=== PATIENT | female | born 1940 | race Caucasian/White ===

== ENCOUNTER 2018-01-19 02:22 | Outpatient (CLI) | payer MEDICARE, SELFPAY ==
[2018-01-19 08:17] LABS: ALT 22 U/L (12-78); AST 14 U/L (15-37); Albumin 3.7 g/dL (3.4-5.0); Alkaline Phosphatase 81 U/L (46-116); Anion Gap 9.2 mmol/L (3-11); BUN 15 mg/dL (7-18); Bilirubin, Total 0.6 mg/dL (0.2-1.0); CO2 28.8 mmol/L (21.0-32.0); CREATININE 1.01 mg/dL (0.55-1.02); Calcium 8.9 mg/dL (8.5-10.1); Chloride 103 mmol/L (98-107); Estimated GFR 53.15 (mL/min/1.73m2); Glucose 110 mg/dL (70-100); Sodium 141 mmol/L (136-145); Total Protein 7.3 g/dL (6.4-8.2)
== END 2018-01-19 02:23 ==
DX: I10 Essential (primary) hypertension (principal); J30.2 Other seasonal allergic rhinitis; R63.8 Other symptoms and signs concerning food and fluid intake
CPT/HCPCS: 36415; 80053

== ENCOUNTER 2018-12-28 02:19 | Outpatient (CLI) | payer MEDICARE, SELFPAY ==
[2018-12-28 10:44] LABS: ALT 27 U/L (12-78); AST 14 U/L (15-37); Albumin 3.8 g/dL (3.4-5.0); Alkaline Phosphatase 89 U/L (46-116); Anion Gap 6.6 mmol/L (3-11); BUN 16 mg/dL (7-18); Bilirubin, Total 0.8 mg/dL (0.2-1.0); CO2 28.4 mmol/L (21.0-32.0); CREATININE 0.92 mg/dL (0.55-1.02); Calcium 8.8 mg/dL (8.5-10.1); Chloride 105 mmol/L (98-107); Estimated GFR 59.19 (mL/min/1.73m2); Glucose 115 mg/dL (70-100); Potassium 4.4 mmol/L (3.5-5.1); Sodium 140 mmol/L (136-145); Total Protein 7.1 g/dL (6.4-8.2)
[2018-12-28 11:08] LABS: Hemoglobin A1C 5.8 % (4.5-6.2)
== END 2018-12-28 02:39 ==
DX: C50.919 Malignant neoplasm of unspecified site of unspecified female breast (principal); I10 Essential (primary) hypertension; L57.0 Actinic keratosis; R73.09 Other abnormal glucose
CPT/HCPCS: 36415; 80053; 83036

== ENCOUNTER 2020-02-07 04:29 | Outpatient (CLI) | payer MEDICARE, SELFPAY ==
[2020-02-07 13:11] LABS: Hemoglobin A1C 5.9 % (<5.7)
[2020-02-07 13:18] LABS: ALT 26 U/L (14-59); AST 14 U/L (15-37); Albumin 3.8 g/dL (3.4-5.0); Alkaline Phosphatase 88 U/L (46-116); Anion Gap 8.7 mmol/L (3-11); BUN 16 mg/dL (7-18); Bilirubin, Total 0.6 mg/dL (0.2-1.0); CO2 29.3 mmol/L (21.0-32.0); CREATININE 0.94 mg/dL (0.55-1.02); Calcium 9.4 mg/dL (8.5-10.1); Chloride 101 mmol/L (98-107); Estimated GFR 57.44 (mL/min/1.73m2); Glucose 117 mg/dL (74-106); Potassium 3.9 mmol/L (3.5-5.1); Sodium 139 mmol/L (136-145); Total Protein 7.3 g/dL (6.4-8.2)
== END 2020-02-07 04:49 ==
DX: R73.01 Impaired fasting glucose (principal); I10 Essential (primary) hypertension; R12 Heartburn; G25.2 Other specified forms of tremor
CPT/HCPCS: 36415; 80053; 83036

== ENCOUNTER 2020-06-10 08:20 | Emergency (ER) | payer OTHER, SELFPAY ==
[2020-06-10] VITALS (67 sets, daily range): BP systolic 138–194; BP diastolic 67–106; PULSE 47–86; RESP 12–24; TEMP 36.1; O2SAT 95–100
--- NOTE | 2020-06-10 08:00 | RT.EKG_ITS ---
APPROVED REPORT Exam: Resting ECG Patient Location: E HR:74 bpm ECG Measurements Heart Rate 74 AXIS ME 173 P 3 QRSd 103 QRS -33 QT 413 T 78 QTc 459 Conclusion Sinus rhythm...normal P axis, V-rate 60- 99 Left ventricular hypertrophy...multiple LVH criteria Repol abnrm suggests ischemia, diffuse leads...ST-T neg, ant/lat/inf ST elevation, consider inferior injury...ST >0.08mV, II III aVF. 1-2mm ST elevation in III, aVF. Reciprocal changes with 1-2mm ST depression in I, aVL, V2-5.
--- NOTE | 2020-06-10 08:15 | ED.GENADUL_ITS ---
Discharge Plan Disposition Patient Disposition: [facility] Condition: Serious Discharge Details Clinical Impression: STEMI (ST elevation myocardial infarction) Primary Care Provider: Renée Esposito ED Provider: Dorcas Young Home Meds and New Rx's Prescriptions: No Action Any 128 2 % drops 1 drp OP DAILY RF: 0 dorzolamide-timolol (PF) 2-0.5 % drops 1 drp OP BID RF: 0 hydrochlorothiazide 25 mg tablet 25 mg PO DAILY Qty: 90 RF: 4 metoprolol tartrate 50 mg tablet 50 mg PO BID Qty: 180 RF: 4 potassium chloride [Klor-Con M20] 20 mEq tablet,ER particles/crystals 20 meq PO DAILY Qty: 90 RF: 4 latanoprost [Xalatan] 2.5 ML drops 1 drp OU HS RF: 0 Tears Naturale II 15 ML drops 15 ml Ophthalmic PRN RF: 0 Discharge Data Discharge Date/Time-TO BE ENTERED AT DEPARTURE: 06/10/20 10:06 Medical Decision Making 0815 -- 80-year-old female with a history of breast cancer with left breast lumpectomy and lymph node resection, hypertension, hyperlipidemia and migraine presents for chest pressure and possible inferior STEMI per EMS. EKG per EMS noted elevation in the inferior leads with reciprocal changes. She was given 4 baby aspirin in route and is currently pain-free. Blood pressure on arrival 194/106. Recheck blood pressure 158/95. EKG on arrival notes a rate of 74, Q waves in 3 and aVF, sinus with [address] elevation in 3 and aVF with reciprocal changes in 1, aVL, V2-5. [facility] paged immediately for cardiology consult. Case discussed with [facility] cardiology who reviewed EKGs and are not calling a STEMI alert or recommend immediate [employer] at accepted patient for transfer, accepting physician Dr. Park, recommend 600 mg Plavix and heparin bolus and drip. Patient to go to the [facility]. 0845 --patient noted to have sinus bradycardia in the 40s on the monitor and complaining of nausea. She denies any chest pain or pressure. Repeat EKG notes a rate of 83, sinus with [address] elevation in 3, [address] elevation in aVF and no acute change in reciprocal findings. Her heart rate improved to the 60s and she was given a dose of Zofran. Labs reviewed and note a troponin of 2.87. Portable chest x-ray no evidence of widened mediastinum. Calcifications left side of chest, she has history of left breast lumpectomy. 0900 --BP 138/67. Patient states nausea improved and she still is chest pain- free. Remainder of labs reviewed and notes a potassium of 3.2 and magnesium of 1.6, will replete. CT chest obtained due to patient's history of breast cancer and it is negative for PE, does note calcifications which are likely status post lobectomy. Medical Records Medical records reviewed: Yes I reviewed the patient's medical records. Imaging Data Radiologic Study: Radiologist's impression: XR PORTABLE CHEST AP CLINICAL HISTORY: chest pressure, r/o acute disease TECHNIQUE: 2D digital imaging was performed. COMPARISON: No exams were available for comparison FINDINGS: MEDIASTINUM: Normal. HEART: Normal. PULMONARY VASCULATURE: Normal. LUNGS: Irregular densities are projected over the lateral aspect of the left hemithorax. These may be represent internal densities such as pleural calcifications, pulmonary mass or infiltrate. PLEURAL SPACE: No pleural effusion or pneumothorax. BONE:Within normal limits for the patient's age. OTHER FINDINGS:Overlying monitoring equipment and wires are noted. IMPRESSION: Densities projected over the lateral aspect of the left hemithorax. Differential considerations include pleural calcifications, pulmonary mass or infiltrate. Skin surface material cannot be excluded. A CT scan of the chest should be considered for further evaluation. CT CHEST PE CTA CLINICAL HISTORY: chest pressure, sob, possible stemi. TECHNIQUE: Imaging Protocol: Axial CT angiography was performed with multi- slice acquisition and multi-planar and/or 3D reconstructions. CONTRAST MATERIAL: Intravenous: Omnipaque 350 Contrast volume:100 mL COMPARISON: CR XR PORTABLE CHEST AP from 06/10/2020 FINDINGS: Tracheobronchial tree: Patent where visualized. Pulmonary parenchyma: Dependent atelectasis in the lung bases. A small area of consolidation in the medial aspect of the right middle lobe which may represent atelectasis or scarring. Scarring in the medial aspect of the left lingula with traction bronchiectasis. Pulmonary Arteries: No evidence of filling defect to suggest pulmonary emboli. Mediastinum and Veronique: No dominant adenopathy or fluid collection. Small hiatal hernia. Visualized thyroid gland: Unremarkable. Pleura: No effusion or pneumothorax. Heart: The heart is not dilated. Moderate coronary artery calcification. No pericardial effusion. Aorta: Thoracic aorta non-dilated. Atherosclerosis. No evidence of dissection. Upper abdomen: 5.2 cm simple cyst in the superior pole of the left kidney. Soft tissues: There are calcifications seen in the soft tissues of the left breast which account for the density seen on the chest x-ray. Bones: Degenerative changes. Old T9 and L2 compression fracture deformities. IMPRESSION: 1. No evidence of pulmonary embolism, thoracic aortic dissection or aneurysm. 2. Calcifications seen on the chest x-ray are in the soft tissues of the left breast. The patient is status post left lumpectomy. 3. Findings were discussed with the emergency department on the date of the examination. Lab Data Lab results reviewed: Yes I reviewed the patient's lab results. Labs: Laboratory Tests Range/Units 06/10/20 06/10/20 06/10/20 08:36 08:36 08:36 WBC (4.4-10.8) 10^3/uL 7.08 RBC (3.93-5.22) 10^6/uL 4.99 Hgb (11.2-15.7) g/dL 15.8 H Hct (36.0-46.0) % 44.1 MCV (80-95) fL 88.4 MCH (27.0-33.0) pg 31.7 MCHC (32.0-36.0) % 35.8 RDW (11.7-14.6) % 12.5 Plt Count (130-400) 10^3/uL 217 MPV (8.0-11.0) fL 10.3 Immature Gran % 0.3 Neutrophils % 72.9 Lymphocytes % 16.5 Monocytes % 9.6 Eosinophils % 0.3 Basophils % 0.4 Nucleated RBC % % 0 Absolute Neutrophils (1.2-6.7) 10^3/uL 5.16 Absolute Lymphocytes (1.2-3.4) 10^3/uL 1.17 L Absolute Monocytes (0.1-0.8) 10^3/uL 0.68 Absolute Eosinophils (0.0-0.7) 10^3/uL 0.02 Absolute Basophils (0.0-0.2) 10^3/uL 0.03 PT (9.3-11.0) sec 10.2 INR (0.9-1.1) 1.0 APTT (21.0-27.5) sec 24.1 Sodium (136-145) mmol/L 135 L Potassium (3.5-5.1) mmol/L 3.2 L Chloride (98-107) mmol/L 99 Carbon Dioxide (21.0-32.0) mmol/L 29.5 Anion Gap (3-11) mmol/L 6.5 BUN (7-18) mg/dL 16 Creatinine (0.55-1.02) mg/dL 1.08 H Estimated GFR/1.73 m2 (mL/min/1.73m2) 48.94 Glucose (74-106) mg/dL 153 H Calcium (8.5-10.1) mg/dL 10.1 Magnesium (1.8-2.4) mg/dL 1.6 L Total Bilirubin (0.2-1.0) mg/dL 1.0 AST (15-37) U/L 40 H ALT (14-59) U/L 29 Alkaline Phosphatase (46-116) U/L 94 Troponin I (<0.06) ng/mL 2.87 H* Total Protein (6.4-8.2) g/dL 8.0 Albumin (3.4-5.0) g/dL 4.0 Lipase (73-393) U/L Range/Units 06/10/20 08:36 WBC (4.4-10.8) 10^3/uL RBC (3.93-5.22) 10^6/uL Hgb (11.2-15.7) g/dL Hct (36.0-46.0) % MCV (80-95) fL MCH (27.0-33.0) pg MCHC (32.0-36.0) % RDW (11.7-14.6) % Plt Count (130-400) 10^3/uL MPV (8.0-11.0) fL Immature Gran % Neutrophils % Lymphocytes % Monocytes % Eosinophils % Basophils % Nucleated RBC % % Absolute Neutrophils (1.2-6.7) 10^3/uL Absolute Lymphocytes (1.2-3.4) 10^3/uL Absolute Monocytes (0.1-0.8) 10^3/uL Absolute Eosinophils (0.0-0.7) 10^3/uL Absolute Basophils (0.0-0.2) 10^3/uL PT (9.3-11.0) sec INR (0.9-1.1) APTT (21.0-27.5) sec Sodium (136-145) mmol/L Potassium (3.5-5.1) mmol/L Chloride (98-107) mmol/L Carbon Dioxide (21.0-32.0) mmol/L Anion Gap (3-11) mmol/L BUN (7-18) mg/dL Creatinine (0.55-1.02) mg/dL Estimated GFR/1.73 m2 (mL/min/1.73m2) Glucose (74-106) mg/dL Calcium (8.5-10.1) mg/dL Magnesium (1.8-2.4) mg/dL Total Bilirubin (0.2-1.0) mg/dL AST (15-37) U/L ALT (14-59) U/L Alkaline Phosphatase (46-116) U/L Troponin I (<0.06) ng/mL Total Protein (6.4-8.2) g/dL Albumin (3.4-5.0) g/dL Lipase (73-393) U/L 132 ECG Data Attestation: I personally reviewed and interpreted this ECG (s) as follows: Interpretation: #1 --Rate of 74, sinus, Q waves noted in 3 and aVF. [address] elevation in 3 and aVF, [address] depression in 1, aVL, V2 through V5. PA 173. QRS 103. QTc 459. #2 --Rate of 63, sinus, Q waves noted in 3 and aVF. [address] elevation in 3, [address] elevation in aVF, [address] depression in 1, aVL, V2 through the 5. HPI General Mode of arrival: EMS . Date/Time Provider Initiated Documentation: 06/10/20 08:27 . Limitations to Documentation: no limitations . Information obtained by: patient . HPI Narrative: Patient is a 80-year-old female with a history of breast cancer and last lumpectomy and lymph node resection, hypertension, hyperlipidemia, migraine headaches presents for indigestion, chest pressure, shortness of breath and nausea for the past 6 days presents by EMS for possible STEMI. EKG per EMS noted elevation in the inferior leads with reciprocal changes. EMS gave patient 4 baby aspirin in route and since then she has been pain-free. She was not given any nitro. She states she has not taken any of her regular medications or eaten yet this morning. Patient states her symptoms started with indigestion 6 days ago and then led to intermittent chest pressure. She states the chest pressure is anterior and comes and goes with out aggravating factors. She states she took a full dose aspirin twice over the past 2 days with some relief of her chest pressure. He states she called the ambulance this morning because the chest pressure awoke her from sleep and was associated with extreme generalized weakness. She states she does have a history of shortness of breath that she has had chronically since her breast cancer diagnosis and states is no worse than usual. She states she has had some nausea but denies any vomiting. She denies any dizziness or diaphoresis. She denies any fever, cough, recent travel, recent known sick contacts or known exposure to coronavirus. Related Data Home Medications Medication Instructions Recorded Confirmed latanoprost [Xalatan] 1 drp OU HS drp 10/14/12 06/10/20 dextran 70-hypromellose [Tears 15 ml OPHTHALMIC PRN 12/07/12 06/10/20 Naturale-Ii Eye Drops] dorzolamide 2 %-timolol 0.5 % (PF) 1 drp OP BID 01/21/20 06/10/20 eye drops hydrochlorothiazide 25 mg tablet 25 mg PO DAILY #90 tab 01/21/20 06/10/20 metoprolol tartrate 50 mg tablet 50 mg PO BID #180 tab-cap 01/21/20 06/10/20 potassium chloride 20 mEq 20 meq PO DAILY #90 tab-cap 01/21/20 06/10/20 tablet,extended release(part/cryst) sodium chloride 2 % eye drops 1 drp OP DAILY 01/21/20 06/10/20 Previous Rx's Medication Instructions Recorded hydrochlorothiazide 25 mg tablet 25 mg PO DAILY #90 tab 01/21/20 metoprolol tartrate 50 mg tablet 50 mg PO BID #180 tab-cap 01/21/20 potassium chloride 20 mEq 20 meq PO DAILY #90 tab-cap 01/21/20 tablet,extended release(part/cryst) Allergies Allergy/AdvReac Type Severity Reaction Status Date / Time No Known Allergies Allergy Verified 06/10/20 08:30 Review of Systems All systems reviewed & are unremarkable except as noted in HPI and below Constitutional Constitutional: Reports as per HPI, Denies chills, Denies fever(s) and Reports weakness Eyes Eyes: Denies blurry vision ENT Ears, Nose, Mouth, and Throat: Denies dizziness, Denies sore throat and Denies throat swelling Cardiovascular Cardiovascular: Reports chest pain and Reports dyspnea Respiratory Respiratory: Denies cough and Reports dyspnea Gastrointestinal Gastrointestinal: Denies abdominal pain, Denies diarrhea, Reports nausea and Denies vomiting Genitourinary Genitourinary: Denies hematuria and Denies dysuria Musculoskeletal Musculoskeletal: Denies back pain and Denies numbness Integumentary/Breasts Skin/Breast: Denies lesions and Denies rash Neurologic Neurologic: Denies dizziness, Denies localized weakness, Denies numbness and Reports weakness Allergic/Immunologic Allergic/Immunologic: Denies throat swelling [facility] Medical History (Updated 06/10/20 @ 09:02 by Dorcas Young DO) Breast Cancer Essential hypertension Essential tremor Fall Glaucoma Heartburn Tubular Adenoma (~2003) Surgical History Breast, Lumpectomy for malignancy 1990 Colonoscopy - IV Sedation 2003, 2006- [place] 2013 - [facility] Extraction of cataract (~1943) in infancy Family History (Updated 01/21/20 @ 15:35 by Sosa Zayas) Mother , 101 Hyperlipidemia Mental disorder DEMENTIA Stroke Dementia Father , 58 Heart disease Myocardial infarction Brother No problems noted. Brother Multiple sclerosis Maternal Grandmother , 97 No problems noted. Maternal Aunt Cancer of uterine adnexa Maternal Grandfather , 58 Heart disease Maternal Grandfather , 97 Heart disease Paternal Grandmother , 78 Essential hypertension Stroke Son No problems noted. Son No problems noted. Son No problems noted. Daughter No problems noted. Social History (Updated 01/21/20 @ 15:33 by Sosa Zayas) Smoking/Tobacco Use Status: Never Smoking risk assessment performed?: Yes Alcohol Intake: current Alcohol type: wine Drug use: Never Substance use type: does not use Counseling given: No Counseling provided: none Caregiver/Support person: No Household members: children and other Details: Oldest son (55) disabled Housing: house Communication Needs: Corrective Lenses Do you need help understanding health information?: Rarely Pets and animals: Yes Pets and animals: cat(s) Sexually active: Yes Do you think of yourself as: straight/heterosexual Current gender identity: female What is your relationship status?: How often do you talk on the phone with friends or family?: three or more times per week How often do you get together with friends or relatives?: three or more times per week How often do you attend scientologist or advent services?: 1-3 times per year Do you belong to any clubs or organized social groups?: no Panel score (0-1 are the most socially isolated patients): 1 What type of physical activity do you participate in: walking Duration: 30-45 minutes/day Frequency: daily Laura/Caodaism: Sabianism Special laura needs: No Seatbelt use: always Drive intox or ride w/intox trolley coach driver: No Exam Const General: cooperative and no acute distress Orientation: alert, awake and oriented x3 HENMT Head: normal to inspection Ears: hearing grossly normal bilaterally and external ears normal General nose exam: external nose normal Face and sinus: normal facial exam Mouth: oral mucosae normal Throat: posterior oropharynx normal Eyes General: appearance normal, both eyes and all related structures Eyelids: eyelids normal EOM: EOM intact bilaterally Neck Neck: normal visual inspection Lymphatic: no lymphadenopathy noted Chest Chest: normal inspection of the chest and no tenderness Resp Effort & Inspection: normal respiratory effort and able to speak in complete sentences Auscultation: clear to auscultation bilaterally Cardio Rate: regular rate Rhythm: regular rhythm GI Inspection: normal to inspection Palpation: soft, not firm, no guarding, no hepatosplenomegaly, no masses and nontender Auscultation: normal bowel sounds Skin General skin exam: no rashes or lesions noted Neuro General: patient alert and patient awake Cognition: normal cognition Speech: speech normal Gait: normal gait Motor: muscle tone normal throughout Sensory Exam: no sensory deficits noted Extrem General: normal to inspection, full ROM, capillary refill normal and no edema Psych Appearance: grossly normal Mental Status: mental status grossly normal Speech and Movement: speech and movement normal Affect: normal affect Thought Process: normal Critical Care Time Critical Care Time Critical Care Time: Yes Total Critical Care Time: 60 Attestation: I spent 60 minutes of critical care time with this patient. This does not include time spent on separately reported billable procedures.
[2020-06-10] MEDS: Normal Saline 1,000 ML 125 ML IV (08:40)
--- NOTE | 2020-06-10 08:41 | DI.CT_ITS ---
EXAM: CT CHEST PE CTA CLINICAL HISTORY: chest pressure, sob, possible stemi. TECHNIQUE: Imaging Protocol: Axial CT angiography was performed with multi-slice acquisition and mu lti-planar and/or 3D reconstructions. CONTRAST MATERIAL: Intravenous: Omnipaque 350 Contrast volume:100 mL COMPARISON: CR XR PORTABLE CHEST AP from 06/10/2020 FINDINGS: Tracheobronchial tree: Patent where visualized. Pulmonary parenchyma: Dependent atelectasis in the lung bases. A small area of consolidation in the medial aspect of the right middle lobe which may represent atelectasis or scarring. Scarring in the medial aspect of the left lingula with traction bronchiectasis. Pulmonary Arteries: No evidence of filling defect to suggest pulmonary emboli. Mediastinum and Veronique: No dominant adenopathy or fluid collection. Small hiatal hernia. Visualized thyroid gland: Unremarkable. Pleura: No effusion or pneumothorax. Heart: The heart is not dilated. Moderate coronary artery calcification. No pericardial effusion. Aorta: Thoracic aorta non-dilated. Atherosclerosis. No evidence of dissection. Upper abdomen: 5.2 cm simple cyst in the superior pole of the left kidney. Soft tissues: There are calcifications seen in the soft tissues of the left breast which account for the density seen on the chest x-ray. Bones: Degenerative changes. Old T9 and L2 compression fracture deformities. IMPRESSION: 1. No evidence of pulmonary embolism, thoracic aortic dissection or aneurysm. 2. Calcifications seen on the chest x-ray are in the soft tissues of the left breast. The patient is status post left lumpectomy. 3. Findings were discussed with the emergency department on the date of the examination. RADIATION DOSE DELIVERED: 395.85mGy.cm Total DLP DATA REPOSITORY: All CT scans at this facility are submitted to the National Radiology Data Registry (NRDR) Dose Index Registry (DIR) with the [employer] (A[employer]). RADIATION OPTIMIZATION: All CT scans at this facility use at least one of these dose optimization te chniques: automated exposure control; mA and/or kV adjustment per patient size (includes targeted exa ms where dose is matched to clinical indication); or iterative reconstruction.
--- NOTE | 2020-06-10 08:45 | DI.RAD_ITS ---
EXAM: XR PORTABLE CHEST AP CLINICAL HISTORY: chest pressure, r/o acute disease TECHNIQUE: 2D digital imaging was performed. COMPARISON: No exams were available for comparison FINDINGS: MEDIASTINUM: Normal. HEART: Normal. PULMONARY VASCULATURE: Normal. LUNGS: Irregular densities are projected over the lateral aspect of the left hemithorax. These may b e represent internal densities such as pleural calcifications, pulmonary mass or infiltrate. PLEURAL SPACE: No pleural effusion or pneumothorax. BONE:Within normal limits for the patient's age. OTHER FINDINGS:Overlying monitoring equipment and wires are noted. IMPRESSION: Densities projected over the lateral aspect of the left hemithorax. Differential considerations incl ude pleural calcifications, pulmonary mass or infiltrate. Skin surface material cannot be excluded. A CT scan of the chest should be considered for further evaluation. DATA REPOSITORY: RADIATION DOSE DELIVERED:
[2020-06-10] MEDS: Clopidogrel 300 MG TAB 600 MG PO (08:49)
[2020-06-10 08:51] LABS: Abs Immature Grans 0.02 10^3/uL (0.0-0.06); Absolute Basophil Count 0.03 10^3/uL (0.0-0.2); Absolute Eosinophil Count 0.02 10^3/uL (0.0-0.7); Absolute Lymphocyte Count 1.17 10^3/uL (1.2-3.4); Absolute Monocyte Count 0.68 10^3/uL (0.1-0.8); Absolute Neutrophil Count 5.16 10^3/uL (1.2-6.7); Basophils % 0.4; Eosinophils % 0.3; HCT 44.1 % (36.0-46.0); HGB 15.8 g/dL (11.2-15.7); Immature Grans % 0.3; Lymphocytes % 16.5; MCH 31.7 pg (27.0-33.0); MCHC 35.8 % (32.0-36.0); MCV 88.4 fL (80-95); MPV 10.3 fL (8.0-11.0); Monocytes % 9.6; Neutrophils % 72.9; Nucleated RBC 0 %; Platelet Count 217 10^3/uL (130-400); RBC 4.99 10^6/uL (3.93-5.22); RDW 12.5 % (11.7-14.6); RDW-SD 40.3 fL; WBC 7.08 10^3/uL (4.4-10.8)
--- NOTE | 2020-06-10 08:56 | RT.EKG_ITS ---
APPROVED REPORT Exam: Resting ECG Patient Location: E HR:63 bpm ECG Measurements Heart Rate 63 AXIS CO 171 P -4 QRSd 107 QRS -34 QT 424 T -74 QTc 435 Conclusion Sinus rhythm...normal P axis, V-rate 60- 99 Left ventricular hypertrophy...multiple LVH criteria ST elevation secondary to LVH...Multiple VCG criteria Nonspecific T abnormalities, lateral leads...T <-0.10mV, I aVL V5 V6. 2mm ST elevation in III. 1mm ST elevation in aVF. 1-2mm ST depression in I, aVL, V2-5.
[2020-06-10] MEDS: Ondansetron 4 MG/2 ML VIAL (08:59)
[2020-06-10 09:00] LABS: Lipase 132 U/L (73-393)
[2020-06-10 09:03] LABS: PTT Activated 24.1 sec (21.0-27.5); Prothrombin Time 10.2 sec (9.3-11.0)
[2020-06-10 09:05] LABS: ALT 29 U/L (14-59); AST 40 U/L (15-37); Alkaline Phosphatase 94 U/L (46-116); Anion Gap 6.5 mmol/L (3-11); BUN 16 mg/dL (7-18); CO2 29.5 mmol/L (21.0-32.0); CREATININE 1.08 mg/dL (0.55-1.02); Calcium 10.1 mg/dL (8.5-10.1); Chloride 99 mmol/L (98-107); Estimated GFR 48.94 (mL/min/1.73m2); Glucose 153 mg/dL (74-106); Magnesium 1.6 mg/dL (1.8-2.4); Potassium 3.2 mmol/L (3.5-5.1); Sodium 135 mmol/L (136-145)
[2020-06-10 09:07] LABS: Troponin I 2.87 ng/mL (<0.06)
[2020-06-10] MEDS: MAGNESIUM SULFATE 1 GM/100 ML BAG IVPB (09:17)
[2020-06-10] MEDS: Potassium Chloride 20 MEQ TABCR 40 MEQ PO (09:21)
[2020-06-10] MEDS: Omnipaque 350 MG/ML 100 ML BTL IJ (09:40)
[2020-06-10] MEDS: Normal Saline - Diluent 50 ML VIAL IV (09:41)
== END 2020-06-10 10:06 | disposition short-term general hospital (02) ==
PROVIDERS: Emergency Provider Physician Assistant
DX: I21.19 ST elevation (STEMI) myocardial infarction involving other coronary artery of inferior wall (principal); I10 Essential (primary) hypertension
CPT/HCPCS: 36415; 71275; 80053; 83690; 93005; 96361; 96365; 96375; 96376; 99291; 71045; 83735; 84484; 85025; 85610; 85730; 93010; J2405; J3475; J3490

== ENCOUNTER 2020-06-26 03:48 | Outpatient (CLI) | payer OTHER, SELFPAY ==
[2020-06-26 13:00] LABS: Anion Gap 10.3 mmol/L (3-11); BUN 18 mg/dL (7-18); CO2 26.7 mmol/L (21.0-32.0); CREATININE 0.8 mg/dL (0.55-1.02); Calcium 9.1 mg/dL (8.5-10.1); Chloride 104 mmol/L (98-107); Glucose 112 mg/dL (74-106); Potassium 4.2 mmol/L (3.5-5.1); Sodium 141 mmol/L (136-145)
== END 2020-06-26 03:49 | disposition home or self-care (01) ==
LOC: LOS 03:48
DX: I10 Essential (primary) hypertension (principal)
CPT/HCPCS: 36415; 80048

== ENCOUNTER → 2020-07-10 12:51 | Outpatient (BNVA) | payer OTHER, SELFPAY | PROVIDERS: Visit Provider Internal Medicine Cardiovascular Disease | DX: I21.4 Non-ST elevation (NSTEMI) myocardial infarction (principal); Z95.5 Presence of coronary angioplasty implant and graft | CPT/HCPCS: 99204; 99214 ==

== ENCOUNTER 2020-08-20 02:37 | Outpatient (CLI) | payer OTHER, SELFPAY ==
[2020-08-21 14:19] LABS: COVID-19 RT-PCR UVMMC Result Negative (Negative)
== END 2020-08-20 02:38 | disposition home or self-care (01) ==
LOC: LBO 02:37
DX: Z20.822 Contact with and (suspected) exposure to COVID-19 (principal)
CPT/HCPCS: U0003

== ENCOUNTER 2020-09-19 08:00 | Outpatient (RCR) | payer OTHER, SELFPAY | END 2020-09-19 23:59 | disposition home or self-care (01) | LOC: CR 08:00 | PROVIDERS: Visit Provider Family Medicine | DX: I25.2 Old myocardial infarction (principal); Z51.89 Encounter for other specified aftercare; Z95.5 Presence of coronary angioplasty implant and graft; I10 Essential (primary) hypertension | CPT/HCPCS: S9472 ==

== ENCOUNTER 2020-10-17 08:00 | Outpatient (RCR) | payer OTHER, SELFPAY | END 2020-10-20 23:59 | disposition home or self-care (01) | LOC: CR 08:00 | PROVIDERS: Visit Provider Family Medicine | DX: Z51.89 Encounter for other specified aftercare (principal); I25.2 Old myocardial infarction; Z95.5 Presence of coronary angioplasty implant and graft | CPT/HCPCS: S9472 ==

== ENCOUNTER 2020-11-17 08:00 | Outpatient (RCR) | payer OTHER, SELFPAY | END 2020-11-19 23:59 | disposition home or self-care (01) | LOC: CR 08:00 | PROVIDERS: Visit Provider Family Medicine | DX: Z51.89 Encounter for other specified aftercare (principal); I25.2 Old myocardial infarction; Z95.5 Presence of coronary angioplasty implant and graft | CPT/HCPCS: S9472 ==

== ENCOUNTER 2020-12-18 04:10 | Outpatient (CLI) | payer OTHER, SELFPAY ==
[2020-12-18 10:27] LABS: ALT 25 U/L (14-59); AST 15 U/L (15-37); Albumin 3.9 g/dL (3.4-5.0); Alkaline Phosphatase 125 U/L (46-116); Anion Gap 11.4 mmol/L (3-11); BUN 13 mg/dL (7-18); CO2 24.6 mmol/L (21.0-32.0); CREATININE 0.9 mg/dL (0.55-1.02); Calcium 9.2 mg/dL (8.5-10.1); Calculated LDL 60 mg/dL (<100); Chloride 105 mmol/L (98-107); Cholesterol 127 mg/dL (<200); Glucose 110 mg/dL (74-106); HDL Cholesterol 44 mg/dL (40-60); Potassium 4.4 mmol/L (3.5-5.1); Sodium 141 mmol/L (136-145); Total Protein 7.2 g/dL (6.4-8.2); Triglyceride 119 mg/dL (<150)
== END 2020-12-18 04:11 | disposition home or self-care (01) ==
LOC: LBO 04:10
DX: I21.3 ST elevation (STEMI) myocardial infarction of unspecified site (principal)
CPT/HCPCS: 36415; 80053; 80061

== ENCOUNTER 2020-12-18 08:00 | Outpatient (RCR) | payer SELFPAY ==
[2020-11-25 08:01] VITALS: BP 163/91; PULSE 78; O2SAT 98
[2020-11-27 08:03] VITALS: BP 155/84
[2020-12-02 08:07] VITALS: BP 168/75; PULSE 73
[2020-12-02 08:43] VITALS: BP 129/76
[2020-12-04 08:13] VITALS: BP 157/78; PULSE 73
--- NOTE | 2020-12-04 08:14 | NUR.NOTE ---
Patient has been checking blood pressures at home and reports that she is typically getting systolic blood pressure readings in the 130's. She reports that she has been under some stress recently due to the of a family member. Therapeutic conversation provided to patient and education on stress and blood pressure provided to patient. Nursing Note:
[2020-12-09 08:05] VITALS: BP 146/73; PULSE 71
[2020-12-11 08:11] VITALS: BP 137/82; PULSE 75
[2020-12-16 08:02] VITALS: BP 160/79; PULSE 76
[2020-12-18 08:02] VITALS: BP 171/77; PULSE 69
== END 2020-12-20 23:59 | disposition home or self-care (01) ==
LOC: CR 08:00
PROVIDERS: Visit Provider Family Medicine
DX: Z51.89 Encounter for other specified aftercare (principal); I25.2 Old myocardial infarction; Z95.5 Presence of coronary angioplasty implant and graft
CPT/HCPCS: S9472

== ENCOUNTER → 2021-01-08 11:06 | Outpatient (BNVA) | payer OTHER, SELFPAY | PROVIDERS: Visit Provider Internal Medicine Cardiovascular Disease | DX: I21.4 Non-ST elevation (NSTEMI) myocardial infarction (principal); I10 Essential (primary) hypertension; Z95.5 Presence of coronary angioplasty implant and graft; Z79.899 Other long term (current) drug therapy | CPT/HCPCS: 99214; 99213 ==

== ENCOUNTER 2021-01-20 08:00 | Outpatient (RCR) | payer SELFPAY ==
[2020-12-21 00:06] VITALS: BP 171/77; PULSE 69
[2020-12-23 08:27] VITALS: BP 149/83; PULSE 74
[2020-12-25 08:12] VITALS: BP 152/83; PULSE 68
[2020-12-30 08:43] VITALS: BP 162/88; PULSE 69
[2021-01-01 08:10] VITALS: BP 147/81; PULSE 70
[2021-01-06 09:29] VITALS: BP 150/96; PULSE 73
[2021-01-08 08:14] VITALS: BP 164/84; PULSE 71
[2021-01-13 08:05] VITALS: BP 152/81; PULSE 70
[2021-01-15 08:07] VITALS: BP 166/89; PULSE 73
[2021-01-20 08:11] VITALS: BP 166/84; PULSE 79
== END 2021-01-20 23:59 | disposition home or self-care (01) ==
LOC: CR 08:00
PROVIDERS: Visit Provider Family Medicine
DX: Z51.89 Encounter for other specified aftercare (principal)

== ENCOUNTER 2021-02-19 08:00 | Outpatient (RCR) | payer SELFPAY ==
[2021-01-21 00:18] VITALS: BP 166/84; PULSE 79
[2021-01-22 08:39] VITALS: BP 153/87; PULSE 68
[2021-01-27 08:06] VITALS: BP 181/83; PULSE 72
[2021-01-29 08:04] VITALS: BP 172/83; PULSE 71
[2021-01-29 08:07] VITALS: BP 142/76
[2021-02-03 08:35] VITALS: BP 158/82; PULSE 72
[2021-02-05 08:09] VITALS: BP 162/72; PULSE 72
[2021-02-10 08:03] VITALS: BP 168/81; PULSE 69
[2021-02-10 08:05] VITALS: BP 148/76; PULSE 68
[2021-02-12 09:43] VITALS: BP 161/85; PULSE 73
[2021-02-17 08:05] VITALS: BP 142/73; PULSE 71
[2021-02-19 08:22] VITALS: BP 159/81; PULSE 63
[2021-02-24 08:01] VITALS: BP 178/91; PULSE 67
[2021-02-24 08:51] VITALS: BP 137/81
== END 2021-02-19 23:59 | disposition home or self-care (01) ==
LOC: CR 08:00
PROVIDERS: Visit Provider Family Medicine
DX: Z51.89 Encounter for other specified aftercare (principal)

== ENCOUNTER 2021-03-04 03:13 | Outpatient (CLI) | payer OTHER, MEDICARE, SELFPAY ==
--- NOTE | 2021-03-04 09:00 | DI.MAMMO_ITS ---
Exam(s) MG MAMMO SCREENING 60 MIN DUR EXAM: MG MAMMO SCREENING 60 MIN DUR CLINICAL HISTORY: breast cancer screening,PERSONAL H/O BREAST CA,Z85.3 TECHNIQUE: Bilateral full field digital CC and MLO mammographic images were obtained with 3D tomosyn thesis and utilizing computer aided detection (CAD). COMPARISON: Available for comparison. FINDINGS: Masses/Architectural Distortion: Patient has had a prior left lumpectomy. There is a 7 mm asymmetric density in the outer right breast on the craniocaudad view. Microcalcifications: No suspicious pleomorphic-type are seen. Skin Thickening/Nipple Retraction: None. IMPRESSION: 1. Asymmetric density in the outer right breast on the craniocaudad view. 2. Spot compression views requested for further evaluation. Ultrasound may be indicated at that time . BI-RADS Category 0 - Assessment Incomplete: Need additional imaging evaluation Breast Density - Category B - Scattered areas of fibroglandular density Breast density category C or D implies that the patient has dense breast tissue. Dense breast tissue is very common and is not abnormal but dense breast tissue can make it harder to find cancer on a ma mmogram. Also, dense breast tissue may increase their breast cancer risk. This information about the result of the mammogram report was provided to the patient to raise their awareness. Use this report when you speak with the patient about their risks for breast cancer, which includes their family hist ory. At that time, you may recommend for more screening tests (Ultrasound or MRI) as they might be us eful based on their risk. A negative radiographic report should not delay biopsy if a dominant or clinically suspicious mass is present. Up to ten percent of cancers are not identified on mammography. A negative report may reinforce clinical impression. Adenosis and dense breasts may obscure an underlying neoplasm. False positive reports average 6 to 10%. Patient will receive a letter notifying them of these results.
== END 2021-03-04 03:33 ==
DX: Z85.3 Personal history of malignant neoplasm of breast (principal); Z12.31 Encounter for screening mammogram for malignant neoplasm of breast; R92.8 Other abnormal and inconclusive findings on diagnostic imaging of breast
CPT/HCPCS: 77063; 77067

== ENCOUNTER 2021-03-19 08:00 | Outpatient (RCR) | payer SELFPAY ==
[2021-02-20 00:09] VITALS: BP 159/81; PULSE 63
[2021-03-03 08:15] VITALS: BP 168/84; PULSE 74
[2021-03-05 09:16] VITALS: BP 152/87; PULSE 67
[2021-03-10 07:58] VITALS: BP 159/86; PULSE 67
[2021-03-12 08:04] VITALS: BP 150/85; PULSE 74
[2021-03-19 08:08] VITALS: BP 158/91; PULSE 79
== END 2021-03-22 23:59 | disposition home or self-care (01) ==
LOC: CR 08:00
PROVIDERS: Visit Provider Family Medicine
DX: Z51.89 Encounter for other specified aftercare (principal); R69 Illness, unspecified

== ENCOUNTER 2021-03-26 02:21 | Outpatient (CLI) | payer OTHER, SELFPAY ==
--- NOTE | 2021-03-26 | DI.US_ITS ---
Exam(s) MG MAMMO SCREEN CALL BACK UNI US BREAST RT COMPLETE EXAM: MG MAMMO SCREEN CALL BACK UNI LEFT AND COMPLETE LEFT BREAST ULTRASOUND CLINICAL HISTORY: F/U MAMMO, OUTER RT BREAST DENSITY,. TECHNIQUE: Unilateral spot mammographic images obtained with 3D tomosynthesisand utilizing computer aided detection (CAD). . Complete left breast Ultrasound was also performed, including all 4 quadrants, the retroareolar brian on, and the ipsilateral axilla. COMPARISON: Prior mammograms were reviewed. Prior mammograms were reviewed. This additional imaging was performed due to findings described on the recent screening mammogram of 03/04/2021. FINDINGS: Additional mammographic views performed todayrender this nodule having the appearance of a probable l ymph node. One of the 3 spot views performed post at a few lymph nodes of similar in appearance up ag ain suggest wall. Ultrasound performed today reveals small nodular densities and posterior 8 o'clock and 10 o'clock pos itions which have the appearance of benign lymph nodes. One of these most probably corresponds to the finding on the mammogram.. There is no pathologic ipsilateral axillary adenopathy. IMPRESSION: Small nodular density posterior laterally as seen on the recent right CC mammographic view is probabl y a benign lymph node, as per today's diagnostic imaging Appropriate follow-up is repeat right breast mammogram in 6 months, with earlier imaging if a self d etected breast change is noted.. The patient was informed of these findings and recommendations prior to leaving the department today. BI-RADS Category 3 - 6 month - Probably Benign Finding: Recommend follow-up mammography in 6 months Breast Density - Category B - Scattered areas of fibroglandular density Breast density Category C or D implies that the patient has dense breast tissue. Dense breast tissue can make it harder to find cancer on a mammogram. Dense breast tissue is also associated with an incr eased risk of breast cancer. This information about the result of the mammogram report was provided to the patient to raise their awareness. Use this report when you speak with the patient about their risks for breast cancer, which includes their family history. At that time, you may recommend additional screening tests (Ultrasoun d or MRI) as these tests may add significant information. A negative radiographic report should not delay biopsy if a dominant or clinically suspicious mass is present. Up to ten percent of cancers are not identified on mammography. A negative report may reinforce clinical impression. Adenosis and dense breasts may obscure an underlying neoplasm. False positive reports average 6 to 10%. Patient will receive a letter notifying them of these results.
== END 2021-03-26 02:41 ==
DX: Z12.31 Encounter for screening mammogram for malignant neoplasm of breast (principal); R92.8 Other abnormal and inconclusive findings on diagnostic imaging of breast; N60.81 Other benign mammary dysplasias of right breast
CPT/HCPCS: 76642; 77063; 77067

== ENCOUNTER 2021-04-21 08:00 | Outpatient (RCR) | payer SELFPAY ==
[2021-03-23 00:07] VITALS: BP 158/91; PULSE 79
[2021-03-24 08:26] VITALS: BP 146/78; PULSE 77
[2021-03-26 08:04] VITALS: BP 168/81; PULSE 77
[2021-03-31 08:15] VITALS: BP 156/73; PULSE 72
[2021-04-02 08:14] VITALS: BP 146/85; PULSE 67
[2021-04-09 08:05] VITALS: BP 170/84; PULSE 77
[2021-04-14 08:38] VITALS: BP 170/79; PULSE 71
[2021-04-21 09:35] VITALS: BP 168/83; PULSE 73
== END 2021-04-21 23:59 | disposition home or self-care (01) ==
LOC: CR 08:00
PROVIDERS: Visit Provider Family Medicine
DX: Z51.89 Encounter for other specified aftercare (principal)

== ENCOUNTER 2021-05-21 08:00 | Outpatient (RCR) | payer SELFPAY ==
[2021-04-22 00:03] VITALS: BP 168/83; PULSE 73
[2021-04-23 08:30] VITALS: BP 150/78; PULSE 71
[2021-04-28 10:24] VITALS: BP 178/83; PULSE 70
[2021-04-30 08:19] VITALS: BP 136/79; PULSE 69
[2021-05-05 08:48] VITALS: BP 166/87; PULSE 69
[2021-05-07 08:13] VITALS: BP 148/79; PULSE 73
[2021-05-12 08:05] VITALS: BP 182/80; PULSE 74
[2021-05-12 08:07] VITALS: BP 165/83
[2021-05-14 08:05] VITALS: BP 197/100; PULSE 80
[2021-05-14 08:08] VITALS: BP 162/82
[2021-05-14 08:09] VITALS: BP 167/82
[2021-05-14 08:50] VITALS: BP 164/82
[2021-05-19 08:13] VITALS: BP 160/91; PULSE 74
[2021-05-21 08:54] VITALS: BP 154/84; PULSE 71
== END 2021-05-22 23:59 | disposition home or self-care (01) ==
LOC: CR 08:00
PROVIDERS: Visit Provider Family Medicine
DX: Z51.89 Encounter for other specified aftercare (principal); R69 Illness, unspecified

== ENCOUNTER 2021-05-25 15:07 | Outpatient (RCR) | payer SELFPAY ==
[2021-05-23 00:14] VITALS: BP 154/84; PULSE 71
== END 2021-06-22 23:59 | disposition home or self-care (01) ==
LOC: CR 15:07
PROVIDERS: Visit Provider Family Medicine
DX: R69 Illness, unspecified (principal)

== ENCOUNTER → 2021-06-15 13:04 | Outpatient (BNVA) | payer MEDICARE, SELFPAY | PROVIDERS: Visit Provider Internal Medicine Cardiovascular Disease | DX: I25.10 Atherosclerotic heart disease of native coronary artery without angina pectoris (principal); I10 Essential (primary) hypertension; E78.5 Hyperlipidemia, unspecified | CPT/HCPCS: 99214; 99213 ==

== ENCOUNTER → 2021-07-13 10:33 | Outpatient (BNVA) | payer MEDICARE, SELFPAY | PROVIDERS: Visit Provider Internal Medicine Cardiovascular Disease | DX: I10 Essential (primary) hypertension (principal); I25.10 Atherosclerotic heart disease of native coronary artery without angina pectoris; E78.5 Hyperlipidemia, unspecified | CPT/HCPCS: 99213 ==

== ENCOUNTER 2021-08-18 08:00 | Outpatient (RCR) | payer SELFPAY ==
[2021-07-21 08:15] VITALS: BP 142/72; PULSE 72
[2021-07-23 08:11] VITALS: BP 143/78; PULSE 72
[2021-07-28 08:05] VITALS: BP 145/70; PULSE 77
[2021-07-30 08:16] VITALS: BP 119/73; PULSE 73
[2021-08-04 08:20] VITALS: BP 144/74; PULSE 71
[2021-08-06 08:14] VITALS: BP 153/79; PULSE 73
[2021-08-11 07:50] VITALS: BP 134/74; PULSE 71
[2021-08-13 08:06] VITALS: BP 130/73; PULSE 74
[2021-08-18 08:02] VITALS: BP 140/72; PULSE 76
[2021-08-20 08:00] VITALS: BP 145/68; PULSE 75
== END 2021-08-20 23:59 | disposition home or self-care (01) ==
LOC: CR 08:00
PROVIDERS: Visit Provider Family Medicine
DX: R69 Illness, unspecified (principal)

== ENCOUNTER 2021-09-10 02:38 | Outpatient (CLI) | payer MEDICARE, SELFPAY ==
[2021-09-10 12:03] LABS: ALT 26 U/L (14-59); AST 14 U/L (15-37); Alkaline Phosphatase 143 U/L (46-116); Anion Gap 8.7 mmol/L (3-11); BUN 20 mg/dL (7-18); CO2 27.3 mmol/L (21.0-32.0); Calcium 9.1 mg/dL (8.5-10.1); Calculated LDL 66 mg/dL (<100); Chloride 102 mmol/L (98-107); Cholesterol 139 mg/dL (<200); Estimated GFR 53.35 (mL/min/1.73m2); Glucose 118 mg/dL (74-106); HDL Cholesterol 44 mg/dL (40-60); Potassium 4.6 mmol/L (3.5-5.1); Sodium 138 mmol/L (136-145); Total Protein 7.5 g/dL (6.4-8.2); Triglyceride 147 mg/dL (<150)
== END 2021-09-10 02:39 | disposition home or self-care (01) ==
LOC: LBO 02:38
DX: E78.5 Hyperlipidemia, unspecified (principal)
CPT/HCPCS: 36415; 80053; 80061

== ENCOUNTER → 2021-09-15 13:46 | Outpatient (BNVA) | payer MEDICARE, SELFPAY | PROVIDERS: Visit Provider Internal Medicine Cardiovascular Disease | DX: E78.5 Hyperlipidemia, unspecified (principal); I10 Essential (primary) hypertension; I25.10 Atherosclerotic heart disease of native coronary artery without angina pectoris; I25.2 Old myocardial infarction | CPT/HCPCS: 99213 ==

== ENCOUNTER 2021-09-17 08:00 | Outpatient (RCR) | payer SELFPAY ==
[2021-08-21 00:06] VITALS: BP 145/68; PULSE 75
[2021-08-25 08:13] VITALS: BP 133/67; PULSE 76
[2021-09-01 08:19] VITALS: BP 145/73; PULSE 78
[2021-09-03 08:18] VITALS: BP 150/74; PULSE 72
[2021-09-10 08:10] VITALS: BP 137/76; PULSE 73; O2SAT 98
[2021-09-15 08:07] VITALS: BP 137/72; PULSE 72
[2021-09-17 08:12] VITALS: BP 136/78; PULSE 68
== END 2021-09-19 23:59 | disposition home or self-care (01) ==
LOC: CR 08:00
PROVIDERS: Visit Provider Internal Medicine Cardiovascular Disease
DX: R69 Illness, unspecified (principal)

== ENCOUNTER 2021-09-23 00:57 | Outpatient (CLI) | payer MEDICARE, SELFPAY ==
[2021-08-27 08:08] VITALS: BP 134/73; PULSE 70
--- NOTE | 2021-09-23 07:30 | DI.MAMMO_ITS ---
Exam(s) MG MAMMO DIAGNOSTIC UNI EXAM: MG MAMMO DIAGNOSTIC UNI CLINICAL HISTORY: 6 mo f/u,f/u abnl mammo, r92.8. TECHNIQUE: Craniocaudal, XCC and mediolateral oblique Full Field Digital Mammography views of the ri ght breast with Computer Aided Diagnosis followed by Tomosynthesis. COMPARISON: No 4 April 12, 04 April 2021 and exams back to 2012. FINDINGS: Mammography/Tomosynthesis: Masses/Architectural Distortion: None seen. Stable small lymph node posterior lateral aspect of the right breast. Microcalcifictions: No suspicious pleomorphic-type are seen. Skin Thickening/Nipple Retraction: None. IMPRESSION: 1. No evidence of malignancy is noted. 2. Unless there is more urgent need, follow-up screening mammography is recommended, as per [place] guidelines. BI-RADS Category 1 - Negative Breast Density - Category B - Scattered areas of fibroglandular density A negative radiographic report should not delay biopsy if a dominant or clinically suspicious mass is present. Up to ten percent of cancers are not identified on mammography. A negative report may reinforce clinical impression. Adenosis and dense breasts may obscure an underlying neoplasm. False positive reports average 6 to 10%. Patient will receive a letter notifying them of these results.
== END 2021-09-23 01:17 ==
DX: R92.8 Other abnormal and inconclusive findings on diagnostic imaging of breast (principal); N64.59 Other signs and symptoms in breast
CPT/HCPCS: 77061; 77065; G0279

== ENCOUNTER 2021-10-20 08:22 | Outpatient (RCR) | payer SELFPAY ==
[2021-09-20 00:13] VITALS: BP 136/78; PULSE 68
[2021-09-24 08:11] VITALS: BP 147/73; PULSE 74
[2021-09-29 08:13] VITALS: BP 135/74; PULSE 76
[2021-10-01 08:00] VITALS: BP 144/71; PULSE 68
[2021-10-06 09:57] VITALS: BP 146/77; PULSE 72
[2021-10-13 08:12] VITALS: BP 139/76; PULSE 76
[2021-10-15 08:50] VITALS: BP 144/78; PULSE 78
[2021-10-20 08:00] VITALS: BP 126/69; PULSE 79
== END 2021-10-20 23:59 | disposition home or self-care (01) ==
LOC: CR 08:22
PROVIDERS: Visit Provider Internal Medicine Cardiovascular Disease
DX: R69 Illness, unspecified (principal)

== ENCOUNTER 2021-11-19 15:05 | Outpatient (RCR) | payer SELFPAY ==
[2021-10-21 00:15] VITALS: BP 126/69; PULSE 79
[2021-10-22 08:09] VITALS: BP 123/67; PULSE 77
[2021-10-27 08:00] VITALS: BP 147/70; PULSE 75
[2021-10-29 08:14] VITALS: BP 143/73; PULSE 66
[2021-11-03 08:09] VITALS: BP 121/71; PULSE 72
[2021-11-05 08:56] VITALS: BP 141/76; PULSE 73
[2021-11-10 08:08] VITALS: BP 142/74; PULSE 70
[2021-11-12 08:20] VITALS: BP 133/68; PULSE 71
[2021-11-19 08:19] VITALS: BP 129/78; PULSE 84
== END 2021-11-19 23:59 | disposition home or self-care (01) ==
LOC: CR 15:05
PROVIDERS: Visit Provider Internal Medicine Cardiovascular Disease
DX: R69 Illness, unspecified (principal)

== ENCOUNTER 2021-12-17 08:29 | Outpatient (RCR) | payer SELFPAY ==
[2021-11-24 08:15] VITALS: BP 124/69; PULSE 77
[2021-11-24 08:25] VITALS: BP 124/69; PULSE 77
[2021-11-26 08:37] VITALS: BP 130/78; PULSE 86
[2021-12-01 08:41] VITALS: BP 131/72; PULSE 75
[2021-12-03 08:54] VITALS: BP 142/77; PULSE 72
[2021-12-08 08:05] VITALS: BP 135/80; PULSE 76
[2021-12-10 08:06] VITALS: BP 126/77; PULSE 71
[2021-12-15 08:11] VITALS: BP 130/78; PULSE 74
[2021-12-17 08:05] VITALS: BP 137/84; PULSE 69
== END 2021-12-20 23:59 | disposition home or self-care (01) ==
LOC: CR 08:29
PROVIDERS: Visit Provider Internal Medicine Cardiovascular Disease
DX: R69 Illness, unspecified (principal)

== ENCOUNTER 2022-01-11 11:01 | Outpatient (CLI) | payer MEDICARE, SELFPAY ==
--- NOTE | 2022-01-11 11:01 | RT.EKG_ITS ---
APPROVED REPORT Exam: Resting ECG Reason for Exam: Annual Check Patient Location: O HR:70 bpm ECG Measurements Heart Rate 70 AXIS DE 206 P -17 QRSd 101 QRS -35 QT 423 T 9 QTc 457 Conclusion Sinus rhythm...normal P axis, V-rate 50- 99 Inferior infarct, old...Q >35mS, II III aVF
== END 2022-01-11 11:02 | disposition home or self-care (01) ==
LOC: DI.CARD 11:01
PROVIDERS: Visit Provider Internal Medicine Cardiovascular Disease
DX: I25.10 Atherosclerotic heart disease of native coronary artery without angina pectoris (principal); I25.2 Old myocardial infarction
CPT/HCPCS: 93010

== ENCOUNTER 2022-01-19 08:00 | Outpatient (RCR) | payer SELFPAY ==
[2021-12-21 00:15] VITALS: BP 137/84; PULSE 69
[2021-12-22 08:20] VITALS: BP 124/81; PULSE 75
[2021-12-24 08:04] VITALS: BP 139/79; PULSE 76
[2021-12-29 08:09] VITALS: BP 115/68; PULSE 73
[2021-12-31 08:52] VITALS: BP 126/80; PULSE 69
[2022-01-05 08:51] VITALS: BP 124/81; PULSE 69
[2022-01-07 08:05] VITALS: BP 114/74; PULSE 73
[2022-01-12 08:06] VITALS: BP 144/80; PULSE 74
[2022-01-14 08:01] VITALS: BP 147/84; PULSE 72
[2022-01-19 08:30] VITALS: BP 103/68; PULSE 73
== END 2022-01-20 23:59 | disposition home or self-care (01) ==
LOC: CR 08:00
PROVIDERS: Visit Provider Internal Medicine Cardiovascular Disease
DX: R69 Illness, unspecified (principal)

== ENCOUNTER 2022-02-18 08:14 | Outpatient (RCR) | payer SELFPAY ==
[2022-01-21 00:18] VITALS: BP 103/68; PULSE 73
[2022-01-21 08:20] VITALS: BP 139/84; PULSE 79
[2022-01-26 08:00] VITALS: BP 125/73; PULSE 75
[2022-01-28 07:59] VITALS: BP 125/78; PULSE 66
[2022-02-02 08:04] VITALS: BP 126/69; PULSE 74
[2022-02-04 08:00] VITALS: BP 133/81; PULSE 68
[2022-02-09 08:18] VITALS: BP 133/82; PULSE 73
[2022-02-11 07:50] VITALS: BP 132/73; PULSE 74
[2022-02-16 08:15] VITALS: BP 125/72; PULSE 82
[2022-02-18 08:05] VITALS: BP 143/76; PULSE 80
== END 2022-02-19 23:59 | disposition home or self-care (01) ==
LOC: CR 08:14
PROVIDERS: Visit Provider Internal Medicine Cardiovascular Disease
DX: R69 Illness, unspecified (principal)

== ENCOUNTER 2022-03-18 08:00 | Outpatient (RCR) | payer SELFPAY ==
[2022-02-20 00:22] VITALS: BP 143/76; PULSE 80
[2022-03-02 08:00] VITALS: BP 136/71; PULSE 71
[2022-03-04 08:09] VITALS: BP 148/73; PULSE 72
[2022-03-09 08:01] VITALS: BP 132/73; PULSE 75
[2022-03-11 08:22] VITALS: BP 142/76; PULSE 70
[2022-03-16 08:27] VITALS: BP 142/69; PULSE 76
[2022-03-18 08:25] VITALS: BP 143/74; PULSE 71
== END 2022-03-22 23:59 | disposition home or self-care (01) ==
LOC: CR 08:00
PROVIDERS: Visit Provider Internal Medicine Cardiovascular Disease
DX: R69 Illness, unspecified (principal)

== ENCOUNTER 2022-04-20 08:00 | Outpatient (RCR) | payer SELFPAY ==
[2022-03-23 00:20] VITALS: BP 143/74; PULSE 71
[2022-03-23 11:35] VITALS: BP 146/71; PULSE 75
[2022-03-25 08:04] VITALS: BP 130/72; PULSE 77
[2022-03-30 09:09] VITALS: BP 138/73; PULSE 78
[2022-04-01 08:08] VITALS: BP 143/77; PULSE 77
[2022-04-06 09:02] VITALS: BP 137/75; PULSE 79
[2022-04-08 08:03] VITALS: BP 122/68; PULSE 76
[2022-04-13 08:04] VITALS: BP 131/73; PULSE 72
[2022-04-20 08:32] VITALS: BP 133/75; PULSE 76
== END 2022-04-21 23:59 | disposition home or self-care (01) ==
LOC: CR 08:00
PROVIDERS: PCP Nurse Practitioner Family; Visit Provider Internal Medicine Cardiovascular Disease
DX: R69 Illness, unspecified (principal)

== ENCOUNTER 2022-05-20 08:27 | Outpatient (RCR) | payer SELFPAY ==
[2022-04-22 00:09] VITALS: BP 133/75; PULSE 76
[2022-04-22 08:57] VITALS: BP 138/80; PULSE 70
[2022-04-29 08:00] VITALS: BP 135/67; PULSE 72
[2022-05-04 08:32] VITALS: BP 145/74; PULSE 76
[2022-05-06 07:55] VITALS: BP 160/76; PULSE 76
[2022-05-11 08:14] VITALS: BP 139/80; PULSE 76
[2022-05-13 08:09] VITALS: BP 159/77; PULSE 69
[2022-05-18 08:10] VITALS: BP 149/78; PULSE 73
[2022-05-20 08:44] VITALS: BP 143/74; PULSE 70
== END 2022-05-22 23:59 | disposition home or self-care (01) ==
LOC: CR 08:27
PROVIDERS: PCP Nurse Practitioner Family; Visit Provider Internal Medicine Cardiovascular Disease
DX: R69 Illness, unspecified (principal)

== ENCOUNTER 2022-06-22 08:00 | Outpatient (RCR) | payer SELFPAY ==
[2022-05-23 00:19] VITALS: BP 143/74; PULSE 70
[2022-05-25 08:00] VITALS: BP 138/73; PULSE 77
[2022-05-27 08:01] VITALS: BP 165/76; PULSE 70
[2022-06-01 08:19] VITALS: BP 146/72; PULSE 73
[2022-06-03 09:32] VITALS: BP 139/71; PULSE 70
[2022-06-08 08:21] VITALS: BP 139/74; PULSE 68
[2022-06-10 08:04] VITALS: BP 146/68; PULSE 66
[2022-06-15 08:19] VITALS: BP 146/77; PULSE 72
[2022-06-17 08:23] VITALS: BP 119/73; PULSE 70
[2022-06-22 08:40] VITALS: BP 136/73; PULSE 71
== END 2022-06-22 23:59 | disposition home or self-care (01) ==
LOC: CR 08:00
PROVIDERS: PCP Nurse Practitioner Family; Visit Provider Internal Medicine Cardiovascular Disease
DX: R69 Illness, unspecified (principal)

== ENCOUNTER → 2022-08-09 09:47 | Outpatient (BNVA) | payer MEDICARE, SELFPAY | PROVIDERS: PCP Nurse Practitioner Family; Visit Provider Internal Medicine Cardiovascular Disease | DX: I25.10 Atherosclerotic heart disease of native coronary artery without angina pectoris (principal); I10 Essential (primary) hypertension | CPT/HCPCS: 99214 ==

== ENCOUNTER 2022-08-19 08:04 | Outpatient (RCR) | payer SELFPAY ==
[2022-07-21 00:08] VITALS: BP 134/71; PULSE 75
[2022-07-22 08:19] VITALS: BP 156/77; PULSE 76; O2SAT 96
[2022-07-27 08:15] VITALS: BP 137/71; PULSE 70
[2022-07-29 08:31] VITALS: BP 137/73; PULSE 70
[2022-08-05 08:07] VITALS: BP 153/79; PULSE 59
[2022-08-10 08:10] VITALS: BP 140/80; PULSE 74
[2022-08-12 08:09] VITALS: BP 151/85; PULSE 74
[2022-08-17 08:43] VITALS: BP 152/75; PULSE 72
[2022-08-19 08:10] VITALS: BP 132/76; PULSE 72
[2022-08-24 08:02] VITALS: BP 171/71; PULSE 70
== END 2022-08-20 23:59 | disposition home or self-care (01) ==
LOC: CR 08:04
PROVIDERS: PCP Nurse Practitioner Family; Visit Provider Internal Medicine Cardiovascular Disease
DX: R69 Illness, unspecified (principal)

== ENCOUNTER 2022-09-16 08:06 | Outpatient (RCR) | payer SELFPAY ==
[2022-08-21 00:06] VITALS: BP 132/76; PULSE 72
[2022-08-26 07:57] VITALS: BP 134/76; PULSE 75
[2022-08-31 08:07] VITALS: BP 138/50; PULSE 72
[2022-09-07 08:04] VITALS: BP 144/76; PULSE 72
[2022-09-09 08:27] VITALS: BP 123/71; PULSE 72
[2022-09-14 08:23] VITALS: BP 132/72; PULSE 81
[2022-09-16 08:24] VITALS: BP 134/71; PULSE 58
== END 2022-09-19 23:59 | disposition home or self-care (01) ==
LOC: CR 08:06
PROVIDERS: PCP Nurse Practitioner Family; Visit Provider Internal Medicine Cardiovascular Disease
DX: R69 Illness, unspecified (principal)

== ENCOUNTER 2022-10-19 08:17 | Outpatient (RCR) | payer SELFPAY ==
[2022-09-20 00:15] VITALS: BP 134/71; PULSE 58
[2022-09-21 08:15] VITALS: BP 127/71; PULSE 77
[2022-09-23 08:22] VITALS: BP 132/74; PULSE 62
[2022-09-28 08:06] VITALS: BP 142/74; PULSE 69
[2022-09-30 08:09] VITALS: BP 132/74; PULSE 79
[2022-10-05 08:20] VITALS: BP 136/69; PULSE 77
[2022-10-07 08:11] VITALS: BP 122/76; PULSE 76
[2022-10-12 08:37] VITALS: BP 150/73; PULSE 74
[2022-10-14 08:36] VITALS: BP 144/78; PULSE 70
[2022-10-19 09:30] VITALS: BP 134/73; PULSE 75
== END 2022-10-20 23:59 | disposition home or self-care (01) ==
LOC: CR 08:17
PROVIDERS: PCP Nurse Practitioner Family; Visit Provider Internal Medicine Cardiovascular Disease

== ENCOUNTER 2022-11-18 08:03 | Outpatient (RCR) | payer SELFPAY ==
[2022-10-21 00:15] VITALS: BP 134/73; PULSE 75
[2022-10-21 08:22] VITALS: BP 138/78; PULSE 67
[2022-10-26 09:13] VITALS: BP 146/70; PULSE 74
[2022-10-28 08:11] VITALS: BP 132/66; PULSE 72
[2022-11-02 08:23] VITALS: BP 139/82; PULSE 78
[2022-11-16 08:31] VITALS: BP 157/86; PULSE 80
[2022-11-18 10:32] VITALS: BP 134/75; PULSE 80
== END 2022-11-19 23:59 | disposition home or self-care (01) ==
LOC: CR 08:03
PROVIDERS: PCP Nurse Practitioner Family; Visit Provider Internal Medicine Cardiovascular Disease
DX: R69 Illness, unspecified (principal)

== ENCOUNTER 2022-12-16 08:03 | Outpatient (RCR) | payer SELFPAY ==
[2022-11-20 00:07] VITALS: BP 134/75; PULSE 80
[2022-11-25 08:04] VITALS: BP 144/79; PULSE 78
[2022-11-30 08:12] VITALS: BP 146/79; PULSE 73
[2022-12-02 08:16] VITALS: BP 146/73; PULSE 71
[2022-12-07 08:12] VITALS: BP 133/75; PULSE 76
[2022-12-09 08:05] VITALS: BP 155/77; PULSE 72
[2022-12-14 08:17] VITALS: BP 134/77; PULSE 76
[2022-12-16 08:22] VITALS: BP 139/80; PULSE 69
== END 2022-12-20 23:59 | disposition home or self-care (01) ==
LOC: CR 08:03
PROVIDERS: PCP Nurse Practitioner Family; Visit Provider Internal Medicine Cardiovascular Disease
DX: R69 Illness, unspecified (principal)

== ENCOUNTER 2023-01-20 08:06 | Outpatient (RCR) | payer SELFPAY ==
[2022-12-21 00:04] VITALS: BP 139/80; PULSE 69
[2022-12-21 08:25] VITALS: BP 145/76; PULSE 71
[2022-12-23 08:04] VITALS: BP 139/75; PULSE 70
[2022-12-28 08:15] VITALS: BP 129/70; PULSE 72
[2022-12-30 09:38] VITALS: BP 146/73; PULSE 73
[2023-01-04 08:31] VITALS: BP 130/74; PULSE 69
[2023-01-06 08:34] VITALS: BP 145/79; PULSE 71
[2023-01-11 08:03] VITALS: BP 143/72; PULSE 70
[2023-01-13 08:16] VITALS: BP 139/78; PULSE 72
[2023-01-18 08:00] VITALS: BP 158/83; PULSE 75
[2023-01-18 08:55] VITALS: BP 125/67; PULSE 81
[2023-01-20 08:11] VITALS: BP 140/74; PULSE 45
== END 2023-01-20 23:59 | disposition home or self-care (01) ==
LOC: CR 08:06
PROVIDERS: PCP Nurse Practitioner Family; Visit Provider Internal Medicine Cardiovascular Disease
DX: R69 Illness, unspecified (principal)

== ENCOUNTER → 2023-02-08 09:36 | Outpatient (BNVA) | payer MEDICARE, SELFPAY | PROVIDERS: PCP Nurse Practitioner Family; Visit Provider Internal Medicine Cardiovascular Disease | DX: I25.10 Atherosclerotic heart disease of native coronary artery without angina pectoris (principal); E78.5 Hyperlipidemia, unspecified; I10 Essential (primary) hypertension | CPT/HCPCS: 99214 ==

== ENCOUNTER 2023-02-17 08:18 | Outpatient (RCR) | payer SELFPAY ==
[2023-01-21 00:03] VITALS: BP 140/74; PULSE 45
[2023-01-25 08:19] VITALS: BP 126/73; PULSE 70
[2023-01-27 08:25] VITALS: BP 144/79; PULSE 69
[2023-02-01 08:14] VITALS: BP 144/74; PULSE 67
[2023-02-03 10:24] VITALS: BP 134/72; PULSE 68
[2023-02-08 08:08] VITALS: BP 137/72; PULSE 70
[2023-02-10 08:15] VITALS: BP 141/73; PULSE 72
[2023-02-15 08:34] VITALS: BP 139/75; PULSE 74
[2023-02-17 08:22] VITALS: BP 152/72; PULSE 69
== END 2023-02-19 23:59 | disposition home or self-care (01) ==
LOC: CR 08:18
PROVIDERS: PCP Nurse Practitioner Family; Visit Provider Internal Medicine Cardiovascular Disease
DX: R69 Illness, unspecified (principal)

== ENCOUNTER 2023-03-22 08:03 | Outpatient (RCR) | payer SELFPAY ==
[2023-02-20 00:12] VITALS: BP 152/72; PULSE 69
[2023-03-01 08:24] VITALS: BP 130/65; PULSE 72
[2023-03-03 08:00] VITALS: BP 138/74; PULSE 66
[2023-03-08 08:08] VITALS: BP 155/75; PULSE 66
[2023-03-10 08:26] VITALS: BP 147/73; PULSE 70
[2023-03-15 08:33] VITALS: BP 143/65; PULSE 69
[2023-03-17 08:03] VITALS: BP 143/74; PULSE 72
[2023-03-22 08:17] VITALS: BP 140/71; PULSE 73
[2023-03-24 09:00] VITALS: BP 125/74
== END 2023-03-22 23:59 | disposition home or self-care (01) ==
LOC: CR 08:03
PROVIDERS: PCP Nurse Practitioner Family; Visit Provider Internal Medicine Cardiovascular Disease
DX: R69 Illness, unspecified (principal)

== ENCOUNTER 2023-04-21 08:01 | Outpatient (RCR) | payer SELFPAY ==
[2023-03-23 00:19] VITALS: BP 152/72; PULSE 69
[2023-03-24 08:15] VITALS: BP 147/90; PULSE 77
[2023-03-29 08:09] VITALS: BP 137/67; PULSE 72
[2023-03-31 08:47] VITALS: BP 120/76; PULSE 76
[2023-04-05 08:16] VITALS: BP 139/74; PULSE 73
[2023-04-07 08:00] VITALS: BP 149/79; PULSE 77
[2023-04-12 08:18] VITALS: BP 149/73; PULSE 79
[2023-04-19 08:19] VITALS: BP 150/85; PULSE 70
[2023-04-21 08:15] VITALS: BP 123/59; PULSE 67
== END 2023-04-21 23:59 | disposition home or self-care (01) ==
LOC: CR 08:01
PROVIDERS: PCP Nurse Practitioner Family; Visit Provider Internal Medicine Cardiovascular Disease
DX: R69 Illness, unspecified (principal)

== ENCOUNTER 2023-05-17 08:45 | Outpatient (RCR) | payer SELFPAY ==
[2023-04-22 00:10] VITALS: BP 152/72; PULSE 69
[2023-04-26 08:00] VITALS: BP 153/77; PULSE 76
[2023-04-28 08:14] VITALS: BP 137/70; PULSE 71
[2023-05-03 08:22] VITALS: BP 142/78; PULSE 71
[2023-05-05 11:08] VITALS: BP 130/70; PULSE 71
[2023-05-12 07:58] VITALS: BP 150/74; PULSE 71
[2023-05-17 08:54] VITALS: BP 127/68; PULSE 72
== END 2023-05-22 23:59 | disposition home or self-care (01) ==
LOC: CR 08:45
PROVIDERS: PCP Nurse Practitioner Family; Visit Provider Internal Medicine Cardiovascular Disease
DX: R69 Illness, unspecified (principal)

== ENCOUNTER 2023-06-21 07:58 | Outpatient (RCR) | payer SELFPAY ==
[2023-05-23 00:18] VITALS: BP 152/72; PULSE 69
[2023-05-24 08:08] VITALS: BP 173/83; PULSE 70
[2023-05-26 08:03] VITALS: BP 141/73; PULSE 84
[2023-05-31 08:51] VITALS: BP 112/60; PULSE 71
[2023-06-07 08:38] VITALS: BP 131/71; PULSE 77
[2023-06-09 08:46] VITALS: BP 143/76; PULSE 75
[2023-06-14 08:15] VITALS: BP 158/82; PULSE 70
[2023-06-16 08:19] VITALS: BP 140/73; PULSE 69
[2023-06-21 08:09] VITALS: BP 138/69; PULSE 72
== END 2023-06-22 23:59 | disposition home or self-care (01) ==
LOC: CR 07:58
PROVIDERS: PCP Nurse Practitioner Family; Visit Provider Internal Medicine Interventional Cardiology
DX: R69 Illness, unspecified (principal)

== ENCOUNTER → 2023-07-07 03:39 | Outpatient (CLI) | payer MEDICARE, SELFPAY ==
[2023-06-23 09:17] VITALS: BP 161/75; PULSE 76
[2023-06-30 09:47] VITALS: BP 137/69; PULSE 70
--- NOTE | 2023-07-07 07:45 | DI.US_ITS ---
Exam(s) US BREAST LT COMPLETE MG MAMMO DIAGNOSTIC BI EXAM: MG MAMMO DIAGNOSTIC BI CLINICAL HISTORY: breast changes,personal h/o breast ca,c50.912. COMPARISON: US US BREAST LT COMPLETE from 07/07/20232016 through 2021 no o'clock position, 2 cm from the nipple, there is a 3.5 x 1.6 x 2.7 centimeters s olid, hypoechoic mass with lobulated margins. TECHNIQUE: Craniocaudal and mediolateral oblique Full Field Digital Mammography views of both breast s with Computer Aided Diagnosis followed by Tomosynthesis and left breast ultrasound. FINDINGS: Mammography/Tomosynthesis: Masses/Architectural Distortion: New large mass seen in the central posterior left breast, proximally 3.5 cm. No mass seen in right breast. Microcalcifications: No suspicious pleomorphic-type are seen in either breast.. Posterior coarse ca lcifications in the left breast appear unchanged. Skin Thickening/Nipple Retraction: Left breast skin thickening greater inferomedially, new since prio r. Left breast US: Shadowing: No suspicious foci. Cyst: None. Solid lesions: None seen. Ductal dilation: None. Skin thickening present. No axillary adenopathy. IMPRESSION: 1. 3.5 centimeter left breast mass, highly suspicious for malignancy. 2. The findings were discussed with the patient and called to referring provider, Matthew Garza. BI-RADS Category 5 - Highly Suggestive of Malignancy: Biopsy recommended Breast Density - Category B - Scattered areas of fibroglandular density Breast density category C or D implies that the patient has dense breast tissue. Dense breast tissue is very common and is not abnormal but dense breast tissue can make it harder to find cancer on a ma mmogram. Also, dense breast tissue may increase their breast cancer risk. This information about the result of the mammogram report was provided to the patient to raise their awareness. Use this report when you speak with the patient about their risks for breast cancer, which includes their family hist ory. At that time, you may recommend for more screening tests (Ultrasound or MRI) as they might be us eful based on their risk. A negative radiographic report should not delay biopsy if a dominant or clinically suspicious mass is present. Up to ten percent of cancers are not identified on mammography. A negative report may reinforce clinical impression. Adenosis and dense breasts may obscure an underlying neoplasm. False positive reports average 6 to 10%. Patient will receive a letter notifying them of these results.
[2023-07-07 08:05] VITALS: BP 161/84; O2SAT 97
[2023-07-12 08:11] VITALS: BP 139/70; PULSE 72
[2023-07-19 08:13] VITALS: BP 154/73; PULSE 75
== END ==
PROVIDERS: PCP Nurse Practitioner Family; Visit Provider Nurse Practitioner Family
DX: C50.112 Malignant neoplasm of central portion of left female breast (principal); Z12.31 Encounter for screening mammogram for malignant neoplasm of breast
CPT/HCPCS: 76642; 77062; 77066; G0279

== ENCOUNTER 2023-07-21 08:11 | Outpatient (RCR) | payer SELFPAY ==
[2023-06-23 00:23] VITALS: BP 152/72; PULSE 69
[2023-06-28 08:00] VITALS: BP 142/81; PULSE 74
[2023-07-05 08:08] VITALS: BP 148/68; PULSE 70
[2023-07-14 08:07] VITALS: BP 149/77; PULSE 75
[2023-07-21 08:16] VITALS: BP 143/76; PULSE 71
== END 2023-07-21 23:59 | disposition home or self-care (01) ==
LOC: CR 08:11
PROVIDERS: PCP Nurse Practitioner Family; Visit Provider Internal Medicine Cardiovascular Disease
DX: R69 Illness, unspecified (principal)

== ENCOUNTER 2023-08-04 03:06 | Outpatient (CLI) | payer MEDICARE, SELFPAY ==
[2023-08-04 12:10] LABS: Calculated LDL 67 mg/dL (<100); Cholesterol 134 mg/dL (<200); HDL Cholesterol 46 mg/dL (40-60); Triglyceride 107 mg/dL (<150)
== END 2023-08-04 03:07 | disposition home or self-care (01) ==
LOC: LBO 03:07
PROVIDERS: PCP Nurse Practitioner Family; Visit Provider Internal Medicine Cardiovascular Disease
DX: I10 Essential (primary) hypertension (principal)
CPT/HCPCS: 36415; 80061

== ENCOUNTER 2023-08-09 08:59 | Outpatient (CLI) | payer MEDICARE, SELFPAY ==
--- NOTE | 2023-08-09 09:00 | RT.EKG_ITS ---
APPROVED REPORT Exam: Resting ECG Reason for Exam: CAD Patient Location: O HR:82 bpm ECG Measurements Heart Rate 82 AXIS MO 199 P -13 QRSd 106 QRS -34 QT 375 T 38 QTc 438 Conclusion Sinus rhythm...normal P axis, V-rate 50- 99 Left axis Late transition Baseline wander in lead(s) II,III,aVF
== END 2023-08-09 09:00 | disposition home or self-care (01) ==
LOC: DI.CARD 09:09
PROVIDERS: PCP Nurse Practitioner Family; Visit Provider Internal Medicine Cardiovascular Disease
DX: I25.10 Atherosclerotic heart disease of native coronary artery without angina pectoris (principal)
CPT/HCPCS: 93010

== ENCOUNTER → 2023-08-09 08:59 | Outpatient (BNVA) | payer MEDICARE, SELFPAY | PROVIDERS: PCP Nurse Practitioner Family; Referring Provider Nurse Practitioner Family; Visit Provider Internal Medicine Cardiovascular Disease | DX: R94.31 Abnormal electrocardiogram [ECG] [EKG] (principal); I25.10 Atherosclerotic heart disease of native coronary artery without angina pectoris; I10 Essential (primary) hypertension; E78.5 Hyperlipidemia, unspecified | CPT/HCPCS: 93005; 99213 ==

== ENCOUNTER 2023-08-18 08:01 | Outpatient (RCR) | payer SELFPAY ==
[2023-07-22 00:23] VITALS: BP 152/72; PULSE 69
[2023-07-26 08:27] VITALS: BP 149/76; PULSE 73
[2023-07-28 08:16] VITALS: BP 155/91; PULSE 78
[2023-08-02 08:21] VITALS: BP 138/76; PULSE 72
[2023-08-04 09:34] VITALS: BP 139/72; PULSE 76
[2023-08-09 08:18] VITALS: BP 147/72; PULSE 79
[2023-08-11 08:45] VITALS: BP 136/65; PULSE 72
[2023-08-16 08:22] VITALS: BP 148/77; PULSE 72
[2023-08-18 08:23] VITALS: BP 144/75; PULSE 74
== END 2023-08-21 23:59 | disposition home or self-care (01) ==
LOC: CR 08:01
PROVIDERS: PCP Nurse Practitioner Family; Visit Provider Internal Medicine Cardiovascular Disease
DX: R69 Illness, unspecified (principal)

== ENCOUNTER 2023-09-20 08:00 | Outpatient (RCR) | payer SELFPAY ==
[2023-08-23 09:33] VITALS: BP 154/89; PULSE 77
[2023-08-30 08:06] VITALS: BP 126/55; PULSE 66
[2023-09-01 07:58] VITALS: BP 151/76; PULSE 70
[2023-09-06 08:07] VITALS: BP 134/67; PULSE 70
[2023-09-08 08:07] VITALS: BP 140/70; PULSE 69
[2023-09-13 08:18] VITALS: BP 123/71; PULSE 75
[2023-09-15 08:06] VITALS: BP 168/79; PULSE 72
[2023-09-20 08:06] VITALS: BP 143/67; PULSE 74
== END 2023-09-20 23:59 | disposition home or self-care (01) ==
LOC: CR 08:00
PROVIDERS: PCP Nurse Practitioner Family; Visit Provider Internal Medicine Cardiovascular Disease
DX: R69 Illness, unspecified (principal)

== ENCOUNTER 2023-11-29 04:54 | Outpatient (CLI) | payer MEDICARE, SELFPAY ==
[2023-11-29 09:21] LABS: Abs Immature Grans 0.01 10^3/uL (0.0-0.06); Absolute Basophil Count 0.05 10^3/uL (0.0-0.2); Absolute Eosinophil Count 0.09 10^3/uL (0.0-0.7); Absolute Lymphocyte Count 1.16 10^3/uL (1.2-3.4); Absolute Monocyte Count 0.45 10^3/uL (0.1-0.8); Absolute Neutrophil Count 3.03 10^3/uL (1.2-6.7); Eosinophils % 1.9 %; HCT 38.6 % (36.0-46.0); HGB 13.4 g/dL (11.2-15.7); Immature Grans % 0.2 %; Lymphocytes % 24.2 %; MCHC 34.7 % (32.0-36.0); MCV 89 fL (80-95); MPV 9.9 fL (8.0-11.0); Monocytes % 9.4 %; Neutrophils % 63.3 %; Platelet Count 237 10^3/uL (130-400); RBC 4.32 10^6/uL (3.93-5.22); RDW 12.9 % (11.7-14.6); RDW-SD 41.8 fL; WBC 4.79 10^3/uL (4.4-10.8)
[2023-11-29 09:34] LABS: ALT 22 U/L (14-59); AST 13 U/L (15-37); Albumin 3.5 g/dL (3.4-5.0); Alkaline Phosphatase 119 U/L (46-116); Anion Gap 7.4 mmol/L (3-11); BUN 16 mg/dL (7-18); Bilirubin, Total 0.55 mg/dL (0.2-1.0); CO2 26.6 mmol/L (21.0-32.0); Calcium 8.8 mg/dL (8.5-10.1); Chloride 105 mmol/L (98-107); Estimated GFR 56.25 (mL/min/1.73m2); Glucose 126 mg/dL (74-106); Potassium 4.2 mmol/L (3.5-5.1); Sodium 139 mmol/L (136-145); Total Protein 7.3 g/dL (6.4-8.2)
== END 2023-11-29 04:55 | disposition home or self-care (01) ==
LOC: LBO 04:54
PROVIDERS: PCP Nurse Practitioner Family; Visit Provider Internal Medicine Hematology & Oncology
DX: C50.112 Malignant neoplasm of central portion of left female breast (principal); Z17.0 Estrogen receptor positive status [ER+]
CPT/HCPCS: 36415; 80053; 85025

== ENCOUNTER → 2023-12-08 01:56 | Outpatient (CLI) | payer MEDICARE, SELFPAY ==
--- NOTE | 2023-12-08 | DI.DEXA_ITS ---
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 COMPARISON: CT CT CHEST PE CTA from 06/10/2020 FINDINGS: Performed on a Hologic unit. Lateral image: There is a mild compression fracture at superior endplate of L1, approximately 20 perc ent height loss at this level. This was evident on CT scan of 06/10/2020. There is also a mild comp ression fracture of superior endplate of T8 seen on that May [address] scan. Lumbar Spine total T-score: -1.8. This is identical reading to the 2009 study Hip total T-score:-2.1. Prior reading in 2008 was -1.5 Independent reading at the level of the femoral neck yields T-score of -2.3 Forearm total T-score: -3.2 IMPRESSION: Bone mineral density measures in the osteopenia range for the lumbar spine and hip. Bone mineral den sity measures in the osteoporosis range for the wrist. Fracture risk is moderate for the lumbar spin e and hip and high for the wrist. Note: Any spine fracture indicates 5x risk for subsequent spine fracture and 2x risk for subsequent h ip fracture. World Health Organization criteria for BMD interpretation classify patients: Normal...... T- Score at or above -1.0 Osteopenic... T- Score between -1.0 and -2.5 Osteoporosis... T-Score at or below -2.5
== END ==
PROVIDERS: PCP Nurse Practitioner Family; Visit Provider Internal Medicine Hematology & Oncology
DX: M81.0 Age-related osteoporosis without current pathological fracture (principal); M85.88 Other specified disorders of bone density and structure, other site; C50.912 Malignant neoplasm of unspecified site of left female breast; Z79.811 Long term (current) use of aromatase inhibitors; M48.54XD Collapsed vertebra, not elsewhere classified, thoracic region, subsequent encounter for fracture with routine healing; M48.56XD Collapsed vertebra, not elsewhere classified, lumbar region, subsequent encounter for fracture with routine healing
CPT/HCPCS: 77080

== ENCOUNTER 2023-12-15 08:00 | Outpatient (RCR) | payer SELFPAY ==
[2023-10-22 00:22] VITALS: BP 143/67; PULSE 74
[2023-11-22 08:12] VITALS: BP 154/91; PULSE 72
[2023-11-29 08:24] VITALS: BP 140/80; PULSE 73; O2SAT 96
[2023-12-06 07:57] VITALS: BP 151/76; PULSE 75
[2023-12-08 08:26] VITALS: BP 160/79; PULSE 78
[2023-12-13 08:05] VITALS: BP 174/85; PULSE 77
[2023-12-15 08:18] VITALS: BP 143/80; PULSE 75
== END 2023-12-21 23:59 | disposition home or self-care (01) ==
LOC: CR 08:00
PROVIDERS: PCP Nurse Practitioner Family; Visit Provider Internal Medicine Cardiovascular Disease
DX: R69 Illness, unspecified (principal)

== ENCOUNTER 2024-02-07 03:09 | Outpatient (CLI) | payer MEDICARE, SELFPAY ==
[2024-02-07 10:38] LABS: Abs Immature Grans 0.02 10^3/uL (0.0-0.06); Absolute Basophil Count 0.04 10^3/uL (0.0-0.2); Absolute Eosinophil Count 0.13 10^3/uL (0.0-0.7); Absolute Lymphocyte Count 0.48 10^3/uL (1.2-3.4); Absolute Neutrophil Count 3.48 10^3/uL (1.2-6.7); Basophils % 0.8 %; Eosinophils % 2.7 %; HCT 39.6 % (36.0-46.0); HGB 13.6 g/dL (11.2-15.7); Immature Grans % 0.4 %; Lymphocytes % 10.1 %; MCH 31.3 pg (27.0-33.0); MCHC 34.3 % (32.0-36.0); MCV 91 fL (80-95); MPV 9.7 fL (8.0-11.0); Monocytes % 12.6 %; Neutrophils % 73.4 %; Platelet Count 192 10^3/uL (130-400); RBC 4.35 10^6/uL (3.93-5.22); RDW-SD 43.1 fL; WBC 4.75 10^3/uL (4.4-10.8)
[2024-02-07 10:55] LABS: ALT 22 U/L (14-59); AST 14 U/L (15-37); Albumin 3.5 g/dL (3.4-5.0); Alkaline Phosphatase 122 U/L (46-116); Anion Gap 6.9 mmol/L (3-11); BUN 11 mg/dL (7-18); Bilirubin, Total 0.47 mg/dL (0.2-1.0); CO2 29.1 mmol/L (21.0-32.0); CREATININE 0.9 mg/dL (0.55-1.02); Calcium 9.5 mg/dL (8.5-10.1); Chloride 103 mmol/L (98-107); Estimated GFR 63.43 (mL/min/1.73m2); Glucose 105 mg/dL (74-106); Potassium 4.2 mmol/L (3.5-5.1); Sodium 139 mmol/L (136-145); Total Protein 7.5 g/dL (6.4-8.2)
== END 2024-02-07 03:10 | disposition home or self-care (01) ==
LOC: LBO 03:09
PROVIDERS: PCP Nurse Practitioner Family; Visit Provider Internal Medicine Hematology & Oncology
DX: C50.919 Malignant neoplasm of unspecified site of unspecified female breast (principal)
CPT/HCPCS: 36415; 80053; 85025

== ENCOUNTER 2024-03-08 03:07 | Outpatient (CLI) | payer MEDICARE, SELFPAY ==
[2024-03-08 12:52] LABS: Absolute Basophil Count 0.02 10^3/uL (0.0-0.2); Absolute Eosinophil Count 0.09 10^3/uL (0.0-0.7); Absolute Lymphocyte Count 0.71 10^3/uL (1.2-3.4); Absolute Monocyte Count 0.31 10^3/uL (0.1-0.8); Absolute Neutrophil Count 2.48 10^3/uL (1.2-6.7); Basophils % 0.6 %; Eosinophils % 2.5 %; HCT 40.5 % (36.0-46.0); HGB 13.7 g/dL (11.2-15.7); Lymphocytes % 19.7 %; MCH 31.3 pg (27.0-33.0); MCHC 33.8 % (32.0-36.0); MCV 93 fL (80-95); MPV 9.4 fL (8.0-11.0); Monocytes % 8.6 %; Neutrophils % 68.6 %; Platelet Count 197 10^3/uL (130-400); RBC 4.38 10^6/uL (3.93-5.22); RDW 13.4 % (11.7-14.6); RDW-SD 45.6 fL; WBC 3.61 10^3/uL (4.4-10.8)
[2024-03-08 13:12] LABS: ALT 18 U/L (14-59); AST 14 U/L (15-37); Albumin 3.8 g/dL (3.4-5.0); Alkaline Phosphatase 138 U/L (46-116); Anion Gap 11.7 mmol/L (3-11); BUN 15 mg/dL (7-18); Bilirubin, Total 0.62 mg/dL (0.2-1.0); CO2 26.3 mmol/L (21.0-32.0); Calcium 9.3 mg/dL (8.5-10.1); Chloride 105 mmol/L (98-107); Glucose 166 mg/dL (74-106); Potassium 3.9 mmol/L (3.5-5.1); Sodium 143 mmol/L (136-145); Total Protein 7.8 g/dL (6.4-8.2)
== END 2024-03-08 03:08 | disposition home or self-care (01) ==
PROVIDERS: PCP Nurse Practitioner Family; Visit Provider Nurse Practitioner Family
DX: C50.112 Malignant neoplasm of central portion of left female breast (principal); Z17.0 Estrogen receptor positive status [ER+]
CPT/HCPCS: 36415; 80053; 85025

== ENCOUNTER 2024-03-08 07:59 | Outpatient (RCR) | payer SELFPAY ==
[2024-01-22 00:04] VITALS: BP 143/67; PULSE 74
[2024-03-08 07:58] VITALS: BP 156/74; PULSE 77; O2SAT 95
== END 2024-03-22 23:59 | disposition home or self-care (01) ==
LOC: CR 07:59
PROVIDERS: PCP Nurse Practitioner Family; Visit Provider Internal Medicine Cardiovascular Disease
DX: R69 Illness, unspecified (principal)

== ENCOUNTER 2024-03-22 03:04 | Outpatient (CLI) | payer MEDICARE, SELFPAY ==
[2024-03-22 12:53] LABS: Abs Immature Grans 0.03 10^3/uL (0.0-0.06); Absolute Basophil Count 0.03 10^3/uL (0.0-0.2); Absolute Eosinophil Count 0.09 10^3/uL (0.0-0.7); Absolute Lymphocyte Count 0.75 10^3/uL (1.2-3.4); Absolute Monocyte Count 0.15 10^3/uL (0.1-0.8); Absolute Neutrophil Count 1.72 10^3/uL (1.2-6.7); Basophils % 1.1 %; Eosinophils % 3.2 %; HCT 37.7 % (36.0-46.0); HGB 12.9 g/dL (11.2-15.7); Immature Grans % 1.1 %; Lymphocytes % 27.1 %; MCH 31.2 pg (27.0-33.0); MCHC 34.2 % (32.0-36.0); MCV 91 fL (80-95); MPV 9.6 fL (8.0-11.0); Monocytes % 5.4 %; Neutrophils % 62.1 %; Platelet Count 140 10^3/uL (130-400); RBC 4.13 10^6/uL (3.93-5.22); RDW 13.1 % (11.7-14.6); RDW-SD 42.8 fL; WBC 2.77 10^3/uL (4.4-10.8)
[2024-03-22 13:02] LABS: ALT 17 U/L (14-59); AST 9 U/L (15-37); Albumin 3.4 g/dL (3.4-5.0); Alkaline Phosphatase 128 U/L (46-116); BUN 12 mg/dL (7-18); CREATININE 1.2 mg/dL (0.55-1.02); Chloride 105 mmol/L (98-107); Estimated GFR 44.91 (mL/min/1.73m2); Glucose 130 mg/dL (74-106); Potassium 3.6 mmol/L (3.5-5.1); Sodium 142 mmol/L (136-145); Total Protein 7.2 g/dL (6.4-8.2)
== END 2024-03-22 03:05 | disposition home or self-care (01) ==
PROVIDERS: PCP Nurse Practitioner Family; Visit Provider Internal Medicine Hematology & Oncology
DX: C50.919 Malignant neoplasm of unspecified site of unspecified female breast (principal)
CPT/HCPCS: 36415; 80053; 85025

== ENCOUNTER 2024-04-17 08:14 | Outpatient (RCR) | payer SELFPAY ==
[2024-03-23 00:21] VITALS: BP 143/67; PULSE 74
[2024-03-27 08:19] VITALS: BP 140/76; PULSE 79
[2024-03-29 08:13] VITALS: BP 151/82; PULSE 74
[2024-04-03 08:02] VITALS: BP 140/77; PULSE 75
[2024-04-05 09:01] VITALS: BP 141/79; PULSE 78
[2024-04-10 08:39] VITALS: BP 147/82; PULSE 78
[2024-04-12 08:03] VITALS: BP 151/85; PULSE 97; O2SAT 98
[2024-04-17 08:17] VITALS: BP 157/83; PULSE 79
== END 2024-04-21 23:59 | disposition home or self-care (01) ==
LOC: CR 08:14
PROVIDERS: PCP Nurse Practitioner Family; Visit Provider Internal Medicine Cardiovascular Disease
DX: R69 Illness, unspecified (principal)

== ENCOUNTER 2024-04-25 13:18 | Outpatient (CLI) | payer MEDICARE, SELFPAY ==
--- NOTE | 2024-04-25 13:15 | RT.EKG_ITS ---
APPROVED REPORT Exam: Resting ECG Reason for Exam: increased heart rate Patient Location: O HR:84 bpm ECG Measurements Heart Rate 84 AXIS [place] 188 P 10 QRSd 99 QRS -39 QT 366 T 52 QTc 433 Conclusion Sinus rhythm...normal P axis, V-rate 50- 99 RSR' in V1 or V2, probably normal variant...small R' only Left axis Baseline wander in lead(s) V3,V4
== END 2024-04-25 13:19 | disposition home or self-care (01) ==
LOC: DI.CM 13:20
PROVIDERS: PCP Nurse Practitioner Family; Visit Provider Nurse Practitioner Family
DX: R00.0 Tachycardia, unspecified (principal)
CPT/HCPCS: 93010

== ENCOUNTER 2024-05-22 08:03 | Outpatient (RCR) | payer SELFPAY ==
[2024-04-22 00:09] VITALS: BP 143/67; PULSE 74
[2024-04-24 08:16] VITALS: BP 159/83; PULSE 93
[2024-04-26 08:07] VITALS: BP 143/90; PULSE 87
[2024-05-01 08:17] VITALS: BP 154/85; PULSE 80
[2024-05-03 12:23] VITALS: BP 153/82; PULSE 76
[2024-05-08 08:01] VITALS: BP 146/79; PULSE 76
[2024-05-10 08:04] VITALS: BP 144/81; PULSE 79
[2024-05-22 08:12] VITALS: BP 143/76; PULSE 85
== END 2024-05-22 23:59 | disposition home or self-care (01) ==
LOC: CR 08:03
PROVIDERS: PCP Nurse Practitioner Family; Visit Provider Internal Medicine Cardiovascular Disease
DX: R69 Illness, unspecified (principal)

== ENCOUNTER 2024-06-21 07:59 | Outpatient (RCR) | payer SELFPAY ==
[2024-05-23 00:06] VITALS: BP 143/67; PULSE 74
[2024-05-24 08:19] VITALS: BP 157/82; PULSE 79
[2024-05-29 08:06] VITALS: BP 144/80; PULSE 79
[2024-05-31 08:17] VITALS: BP 155/83; PULSE 79
[2024-06-05 08:15] VITALS: BP 159/79; PULSE 52
[2024-06-07 08:30] VITALS: BP 160/85; PULSE 79
[2024-06-12 08:12] VITALS: BP 166/83; PULSE 87
[2024-06-14 08:07] VITALS: BP 163/83; PULSE 81
[2024-06-19 08:17] VITALS: BP 149/77; PULSE 75
[2024-06-21 08:04] VITALS: BP 155/78; PULSE 77; O2SAT 97
== END 2024-06-22 23:59 | disposition home or self-care (01) ==
LOC: CR 07:59
PROVIDERS: PCP Nurse Practitioner Family; Visit Provider Internal Medicine Cardiovascular Disease
DX: R69 Illness, unspecified (principal)

== ENCOUNTER 2024-07-17 08:09 | Outpatient (RCR) | payer SELFPAY ==
[2024-06-23 00:04] VITALS: BP 143/67; PULSE 74
[2024-06-26 08:23] VITALS: BP 149/85; PULSE 107
[2024-07-03 08:08] VITALS: BP 147/77; PULSE 91
[2024-07-05 08:00] VITALS: BP 163/87; PULSE 87; O2SAT 98
[2024-07-10 09:19] VITALS: BP 147/79; PULSE 90
[2024-07-12 08:11] VITALS: BP 140/74; PULSE 84
[2024-07-17 08:11] VITALS: BP 147/81; PULSE 87
== END 2024-07-20 23:59 | disposition home or self-care (01) ==
LOC: CR 08:09
PROVIDERS: PCP Nurse Practitioner Family; Visit Provider Internal Medicine Cardiovascular Disease
DX: R69 Illness, unspecified (principal)

== ENCOUNTER → 2024-08-07 09:19 | Outpatient (BNVA) | payer MEDICARE, SELFPAY | PROVIDERS: PCP Nurse Practitioner Family; Visit Provider Internal Medicine Cardiovascular Disease | DX: I25.10 Atherosclerotic heart disease of native coronary artery without angina pectoris (principal); E78.5 Hyperlipidemia, unspecified; I10 Essential (primary) hypertension | CPT/HCPCS: 99214 ==

== ENCOUNTER 2024-08-16 08:16 | Outpatient (RCR) | payer SELFPAY ==
[2024-07-21 00:02] VITALS: BP 143/67; PULSE 74
[2024-07-26 08:20] VITALS: BP 150/88; PULSE 105
[2024-07-31 08:31] VITALS: BP 140/82; PULSE 80
[2024-08-02 08:04] VITALS: BP 155/86; PULSE 85
[2024-08-09 08:15] VITALS: BP 158/85; PULSE 80
[2024-08-14 08:40] VITALS: BP 150/81; PULSE 82
[2024-08-16 08:00] VITALS: BP 148/86; PULSE 89; O2SAT 96
== END 2024-08-20 23:59 | disposition home or self-care (01) ==
LOC: CR 08:16
PROVIDERS: PCP Nurse Practitioner Family; Visit Provider Internal Medicine Cardiovascular Disease
DX: R69 Illness, unspecified (principal)

== ENCOUNTER 2024-09-18 08:20 | Outpatient (RCR) | payer SELFPAY ==
[2024-08-21 00:14] VITALS: BP 143/67; PULSE 74
[2024-08-21 08:27] VITALS: BP 145/81; PULSE 94
[2024-08-23 08:03] VITALS: BP 139/82; PULSE 81; O2SAT 96
[2024-08-28 08:22] VITALS: BP 155/88; PULSE 79
[2024-08-30 08:10] VITALS: BP 166/86; PULSE 83; O2SAT 96
[2024-09-04 08:44] VITALS: BP 145/78; PULSE 82
[2024-09-06 08:17] VITALS: BP 161/83; PULSE 78
[2024-09-11 09:13] VITALS: BP 157/85; PULSE 74
[2024-09-13 08:26] VITALS: BP 147/80; PULSE 73
[2024-09-18 08:24] VITALS: BP 166/91; PULSE 75
== END 2024-09-19 23:59 | disposition home or self-care (01) ==
LOC: CR 08:20
PROVIDERS: PCP Nurse Practitioner Family; Visit Provider Internal Medicine Cardiovascular Disease
DX: R69 Illness, unspecified (principal)

== ENCOUNTER 2024-10-18 08:13 | Outpatient (RCR) | payer SELFPAY ==
[2024-09-20 00:18] VITALS: BP 143/67; PULSE 74
[2024-09-20 08:44] VITALS: BP 142/75; PULSE 75
[2024-09-25 08:21] VITALS: BP 134/77; PULSE 89
[2024-09-27 08:19] VITALS: BP 150/84; PULSE 79
[2024-10-02 08:16] VITALS: BP 151/81; PULSE 76
[2024-10-04 08:08] VITALS: BP 139/80; PULSE 78
[2024-10-09 08:07] VITALS: BP 135/72; PULSE 84
[2024-10-11 08:17] VITALS: BP 158/86; PULSE 79
[2024-10-16 08:10] VITALS: BP 160/86; PULSE 77
[2024-10-18 09:32] VITALS: BP 141/80; PULSE 80
== END 2024-10-20 23:59 | disposition home or self-care (01) ==
LOC: CR 08:13
PROVIDERS: PCP Nurse Practitioner Family; Visit Provider Internal Medicine Cardiovascular Disease
DX: R69 Illness, unspecified (principal)

== ENCOUNTER 2024-11-15 08:00 | Outpatient (RCR) | payer SELFPAY ==
[2024-10-21 00:11] VITALS: BP 143/67; PULSE 74
[2024-10-25 09:08] VITALS: BP 148/84
[2024-10-30 09:22] VITALS: BP 133/80; PULSE 85
[2024-11-01 08:16] VITALS: BP 151/80; PULSE 82
[2024-11-06 08:29] VITALS: BP 148/83; PULSE 77
[2024-11-08 08:19] VITALS: BP 133/76; PULSE 81
[2024-11-13 08:18] VITALS: BP 135/78; PULSE 62
[2024-11-15 08:05] VITALS: BP 145/76; PULSE 74
== END 2024-11-19 23:59 | disposition home or self-care (01) ==
LOC: CR 08:00
PROVIDERS: PCP Nurse Practitioner Family; Visit Provider Internal Medicine Cardiovascular Disease
DX: R69 Illness, unspecified (principal)

== ENCOUNTER 2024-12-20 08:00 | Outpatient (RCR) | payer SELFPAY ==
[2024-11-20 00:06] VITALS: BP 145/76; PULSE 74
[2024-11-20 08:17] VITALS: BP 169/85; PULSE 76
[2024-11-22 08:15] VITALS: BP 154/84; PULSE 73
[2024-11-27 09:11] VITALS: BP 147/81; PULSE 76
[2024-11-29 08:28] VITALS: BP 145/77; PULSE 74
[2024-12-04 08:26] VITALS: BP 146/80; PULSE 70
[2024-12-06 08:07] VITALS: BP 146/81; PULSE 80; O2SAT 95
[2024-12-11 08:41] VITALS: BP 155/80; PULSE 74
[2024-12-13 08:28] VITALS: BP 142/77; PULSE 78
[2024-12-18 08:30] VITALS: BP 140/81; PULSE 77
[2024-12-20 08:27] VITALS: BP 138/77; PULSE 76
== END 2024-12-20 23:59 | disposition home or self-care (01) ==
LOC: CR 08:00
PROVIDERS: PCP Nurse Practitioner Family; Visit Provider Internal Medicine Cardiovascular Disease
DX: R69 Illness, unspecified (principal)

== ENCOUNTER 2025-01-17 08:00 | Outpatient (RCR) | payer SELFPAY ==
[2024-12-21 00:05] VITALS: BP 138/77; PULSE 76
[2024-12-25 08:18] VITALS: BP 143/80; PULSE 73
[2024-12-27 08:12] VITALS: BP 147/84; PULSE 70
[2025-01-01 08:30] VITALS: BP 140/76; PULSE 77
[2025-01-03 07:59] VITALS: BP 142/86; PULSE 78
[2025-01-08 08:38] VITALS: BP 155/80; PULSE 76
[2025-01-10 08:43] VITALS: BP 153/84; PULSE 52
[2025-01-15 08:33] VITALS: BP 144/75; PULSE 73
[2025-01-17 08:23] VITALS: BP 139/75; PULSE 69
== END 2025-01-20 23:59 | disposition home or self-care (01) ==
LOC: CR 08:00
PROVIDERS: PCP Nurse Practitioner Family; Visit Provider Internal Medicine Cardiovascular Disease
DX: R69 Illness, unspecified (principal)

== ENCOUNTER 2025-02-14 08:00 | Outpatient (RCR) | payer SELFPAY ==
[2025-01-22 08:41] VITALS: BP 150/78; PULSE 75
[2025-01-24 08:28] VITALS: BP 149/78; PULSE 72
[2025-01-29 08:05] VITALS: BP 151/80; PULSE 72
[2025-01-31 08:20] VITALS: BP 145/86; PULSE 71
[2025-02-05 08:27] VITALS: BP 143/78; PULSE 71
[2025-02-07 09:12] VITALS: BP 136/71; PULSE 70
[2025-02-12 08:14] VITALS: BP 145/76; PULSE 73
[2025-02-14 08:11] VITALS: BP 135/81; PULSE 76
== END 2025-02-19 23:59 | disposition home or self-care (01) ==
LOC: CR 08:00
PROVIDERS: PCP Nurse Practitioner Family; Visit Provider Internal Medicine Cardiovascular Disease
DX: R69 Illness, unspecified (principal)

== ENCOUNTER 2025-03-14 03:25 | Outpatient (CLI) | payer MEDICARE, SELFPAY ==
[2025-03-14 10:34] LABS: ALT 18 U/L (14-59); AST 12 U/L (15-37); Albumin 3.6 g/dL (3.4-5.0); Alkaline Phosphatase 105 U/L (46-116); Anion Gap 10.0 mmol/L (3-11); BUN 19 mg/dL (7-18); Bilirubin, Total 0.6 mg/dL (0.2-1.0); CO2 26.0 mmol/L (21.0-32.0); Calcium 9.0 mg/dL (8.5-10.1); Chloride 101 mmol/L (98-107); Estimated GFR 63.04 (mL/min/1.73m2); Glucose 115 mg/dL (74-106); Potassium 4.0 mmol/L (3.5-5.1); Sodium 137 mmol/L (136-145); Total Protein 7.6 g/dL (6.4-8.2)
== END 2025-03-14 03:26 | disposition home or self-care (01) ==
PROVIDERS: PCP Nurse Practitioner Family; Visit Provider Nurse Practitioner Family
DX: M81.0 Age-related osteoporosis without current pathological fracture (principal)
CPT/HCPCS: 36415; 80053

== ENCOUNTER 2025-03-21 08:00 | Outpatient (RCR) | payer SELFPAY ==
[2025-02-20 00:09] VITALS: BP 135/81; PULSE 76
[2025-02-26 08:21] VITALS: BP 145/84; PULSE 82
[2025-03-05 09:23] VITALS: BP 160/83; PULSE 73
[2025-03-07 08:09] VITALS: BP 151/90; PULSE 80
[2025-03-12 08:11] VITALS: BP 134/78; PULSE 77
[2025-03-14 08:20] VITALS: BP 156/82; PULSE 79
[2025-03-19 08:45] VITALS: BP 137/83; PULSE 81
[2025-03-21 08:00] VITALS: BP 145/83; PULSE 77; O2SAT 96
== END 2025-03-22 23:59 | disposition home or self-care (01) ==
LOC: CR 08:00
PROVIDERS: PCP Nurse Practitioner Family; Visit Provider Internal Medicine Cardiovascular Disease
DX: R69 Illness, unspecified (principal)

== ENCOUNTER 2025-04-16 08:00 | Outpatient (RCR) | payer SELFPAY ==
[2025-03-23 00:05] VITALS: BP 145/83; PULSE 77
[2025-03-26 08:14] VITALS: BP 152/84; PULSE 77
[2025-03-28 08:17] VITALS: BP 140/75; PULSE 77
[2025-04-02 08:11] VITALS: BP 151/84; PULSE 76
[2025-04-04 08:15] VITALS: BP 151/87; PULSE 76
[2025-04-09 08:26] VITALS: BP 146/79; PULSE 76
[2025-04-11 08:15] VITALS: BP 145/77; PULSE 73
[2025-04-16 08:35] VITALS: BP 144/85; PULSE 80
== END 2025-04-21 23:59 | disposition home or self-care (01) ==
LOC: CR 08:00
PROVIDERS: PCP Nurse Practitioner Family; Visit Provider Internal Medicine Cardiovascular Disease
DX: R69 Illness, unspecified (principal)

== ENCOUNTER 2025-05-21 08:00 | Outpatient (RCR) | payer SELFPAY ==
[2025-04-22 00:05] VITALS: BP 144/85; PULSE 80
[2025-04-23 08:14] VITALS: BP 141/85; PULSE 71
[2025-04-25 08:27] VITALS: BP 147/81; PULSE 79
[2025-04-30 08:38] VITALS: BP 147/84; PULSE 69
[2025-05-02 08:18] VITALS: BP 150/84; PULSE 75
[2025-05-07 08:17] VITALS: BP 162/84; PULSE 75
[2025-05-14 08:37] VITALS: BP 142/81; PULSE 79
[2025-05-21 08:39] VITALS: BP 151/83; PULSE 73
== END 2025-05-22 23:59 | disposition home or self-care (01) ==
LOC: CR 08:00
PROVIDERS: PCP Nurse Practitioner Family; Visit Provider Internal Medicine Cardiovascular Disease
DX: R69 Illness, unspecified (principal)